=== PATIENT | male | born 1965 | race Caucasian/White ===

== ENCOUNTER 2018-07-26 18:01 | Inpatient (IN) | payer BC ==
--- OUTSIDE RECORDS SUMMARY | 2018-07-26 18:03 | XMS REPORT ---
:1965 [facility] [address] [place] [address] Dr. Mahmood. [address] [place] [address] Care Team Providers Name Role Phone DR HIEU OCAMPO Unavailable Unavailable Problems This patient has no known problems. Allergies, Adverse Reactions, Alerts This patient has no known allergies or adverse reactions. Medications This patient has no known medications. Encounters Start End Encounter Admission Attending Care Care Encounter Date/Time Date/Time Type Type Clinicians Facility Department ID 2017-12-13 Inpatient HIEU ONEIL Xi NGUYEN [id number] 14:00:00 2017-11-29 Inpatient HIEU ONEIL Xi NGUYEN [id number] 13:00:00
[2018-07-26 19:59] LABS: Absolute Monocytes 0.6 K/uL (0.1-1.3); Absolute Neutrophil 7.1 K/uL (1.8-8.0); Basophils % 1.3 % (0-1.3); Eosinophils % 1.4 % (0-4.4); Hematocrit 44.4 % (39.6-49.0); Lymphocytes % 11.4 % (15.3-44.8); MPV 7.3 fL (7.6-11.3); Monocytes % 7.2 % (3.3-12.3); RBC Red Blood Cell Count 4.84 M/uL (4.33-5.43)
[2018-07-26 20:03] LABS: Protime INR 1.04
[2018-07-26 20:28] LABS: ALT/SGPT 23 U/L (12-78); AST/SGOT 24 U/L (15-37); Albumin 3.9 g/dL (3.4-5.0); Alkaline Phosphatase 68 U/L (45-117); BUN Blood Urea Nitrogen 17 mg/dL (7-18); Bicarbonate 29 mmol/L (21-32); Bilirubin Direct 0.1 mg/dL (0-0.2); Bilirubin Total 0.4 mg/dL (0.2-1.0); Glucose Level 85 mg/dL (74-106); Potassium 4.2 mmol/L (3.5-5.1); Protein, Total 7.1 g/dL (6.4-8.2); Sodium Level 141 mmol/L (136-145)
[2018-07-26 20:29] LABS: Magnesium 2.3 mg/dL (1.8-2.4); NT PRO-BNP 18 pg/mL (<125); Troponin (Emerg Dept Use Only) < 0.02 ng/mL (0.0-0.045)
[2018-07-26 20:36] LABS: Blood Morphology Comment NOT SEEN (NOT SEEN); Platelet Estimate ADEQ; Urine White Blood Cell Casts OK
--- NOTE | 2018-07-26 20:51 | RAD REPORT ---
EXAM DESCRIPTION: RAD - Chest Single View - 07/26/2018 8:00 pm CLINICAL HISTORY: Chest pain, shortness of breath COMPARISON: January 2016 TECHNIQUE: AP portable chest image was obtained 1952 hours . FINDINGS: Patient has a very large 70% right-sided pneumothorax. Trachea is midline. There is near c omplete collapse of right-sided lobes. No pneumomediastinum seen. Left lung field is clear. Heart and vasculature are normal. No pleural fluid. 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 No acute aortic findings suspected. IMPRESSION: Approximately 70% right-sided pneumothorax. No tracheal shift or pneumomediastinum. No pleural fluid collection.
[2018-07-26] MEDS ORDERED: ONDANSETRON 4 MG/2 ML VIAL ONE (21:24)
[2018-07-26] MEDS ORDERED: PROPOFOL 200 MG/20 ML VIAL IV ONE (21:25)
[2018-07-26] MEDS ORDERED: NA CHLORIDE 0.9% 1,000 ML ONE (21:25)
--- NOTE | 2018-07-26 22:42 | RAD REPORT ---
EXAM DESCRIPTION: Amadout Single View07/26/2018 10:35 pm CLINICAL HISTORY: Right pneumothorax COMPARISON: July 26 FINDINGS: Right chest tube has been inserted with its tip overlying the right upper hemithorax. Right lung has re-expanded. Small right pneumothorax is present. No other change IMPRESSION: Placement of a right chest tube with small right pneumothorax
[2018-07-26] MEDS ORDERED: HYDROMORPHONE HCL 0.5 MG/0.5 ML INJ ONE (22:44)
[2018-07-26] MEDS ORDERED: HYDROMORPHONE HCL 1 MG/ML INJ ONE (23:08)
--- NOTE | 2018-07-26 23:22 | ER ---
Nurse's Notes [facility] Name: Owen Gaitan Age: 53 yrs Sex: Male : 1965 Arrival Date: 07/26/2018 Time: 18:02 Bed 4 Private MD: Shine Christine Diagnosis: Pneumothorax, unspecified Presentation: 07/26 18:08 Presenting complaint: Patient states: "I have a bit of a hiatal hernia. I swallowed ss bread and I felt pain, but it went away. Now I feel a pain again in my esophagus, but now it goes through my back. It hurts to breath and it hurts to swallow.". Transition of care: patient was not received from another setting of care. Onset of symptoms was July 26, 2018. Risk Assessment: Do you want to hurt yourself or someone else? Patient reports no desire to harm self or others. Initial Sepsis Screen: Does the patient meet any 2 criteria? No. Patient's initial sepsis screen is negative. Does the patient have a suspected source of infection? No. Patient's initial sepsis screen is negative. Care prior to arrival: None. 18:08 Method Of Arrival: Ambulatory ss 18:08 Acuity: JAIR 3 ss Triage Assessment: 19:12 General: Appears in no apparent distress. Behavior is calm, cooperative. Pain: ls4 Complains of pain in mid-sternal area Pain currently is 10 out of 10 on a pain scale. GI: Abdomen is flat, non-distended, Bowel sounds present X 4 quads. Abd is soft and non tender X 4 quads. Reports epigastric pain. Historical: - Allergies: 18:10 Iodine; ss 18:10 Morphine; ss 18:10 Shellfish Containing Products; ss - PMHx: 19:14 Arrhythmia- possibly afib; testicular CA; ls4 - PSHx: 18:10 spinal fusion; ss - Immunization history:: Adult Immunizations up to date. - Social history:: Smoking status: Patient uses tobacco products, chewing tobacco. - Ebola Screening: : Patient denies exposure to infectious person Patient denies travel to an Ebola-affected area in the 21 days before illness onset. Screenin:15 Abuse screen: Denies threats or abuse. Denies injuries from another. Nutritional ls4 screening: No deficits noted. Tuberculosis screening: No symptoms or risk factors identified. Fall Risk None identified. Assessment: 19:48 General: Appears in no apparent distress. Behavior is calm, cooperative. Neuro: No ls4 deficits noted. Cardiovascular: Reports chest pain, Heart tones S1 S2 Capillary refill < 3 seconds Patient's skin is warm and dry. Respiratory: Respiratory effort is even, unlabored, Respiratory pattern is regular, Breath sounds are clear in left posterior upper lobe and left posterior lower lobe Breath sounds are diminished in right posterior upper lobe, right posterior middle lobe and right posterior lower lobe. Derm: Skin is pink, warm \\T\\ dry. 20:00 Reassessment: Patient and/or family updated on plan of care and expected duration. Pain ls4 level reassessed. Patient is alert, oriented x 3, equal unlabored respirations, skin warm/dry/pink. 21:00 Reassessment: Patient appears in no apparent distress at this time. Patient and/or cc3 family updated on plan of care and expected duration. Pain level reassessed. Patient is alert, oriented x 3, equal unlabored respirations, skin warm/dry/pink. Received this male patient from MONIQUE Merritt as a case of pneumothorax for chest tube insertion. With IV cannula gauge 20 at the left ACV saline locked. 21:05 Reassessment: Patient consented for conscious sedation and chest tube insertion signed cc3 by the patient himself. 21:59 Reassessment: Patient appears in no apparent distress at this time. Patient and/or cc3 family updated on plan of care and expected duration. Pain level reassessed. Patient is alert, oriented x 3, equal unlabored respirations, skin warm/dry/pink. Dr. Hamilton at bedside to do right chest tube insertion, monitored the patient closely. 22:15 Reassessment: Patient appears in no apparent distress at this time. Patient and/or cc3 family updated on plan of care and expected duration. Pain level reassessed. Dr. Hamilton inserted chest tube Fr. 22 at the right lateral chest wall aseptically connected to water seal chamber. Monitored the patient closely pre, intra, and post procedure. See documentation of conscious sedation flowsheet. Dressing done, patient tolerated the procedure well. 22:25 Reassessment: Patient appears in no apparent distress at this time. Patient and/or cc3 family updated on plan of care and expected duration. Pain level reassessed. Patient is alert, oriented x 3, equal unlabored respirations, skin warm/dry/pink. 23:21 Reassessment: Patient appears in no apparent distress at this time. Patient and/or cc3 family updated on plan of care and expected duration. Pain level reassessed. Patient is alert, oriented x 3, equal unlabored respirations, skin warm/dry/pink. Patient for admission, awaiting admission orders. Patient states feeling better. Patient states symptoms have improved. 07/27 00:00 Reassessment: Patient appears in no apparent distress at this time. Patient and/or cc3 family updated on plan of care and expected duration. Pain level reassessed. Patient is alert, oriented x 3, equal unlabored respirations, skin warm/dry/pink. Dr. Smith at bedside, assessing the patient. 01:05 Reassessment: Patient appears in no apparent distress at this time. Patient and/or cc3 family updated on plan of care and expected duration. Pain level reassessed. Patient is alert, oriented x 3, equal unlabored respirations, skin warm/dry/pink. Room available to 221, report called and handed over to MONIQUE Cox for continuity of care and management. 01:25 Reassessment: Patient appears in no apparent distress at this time. Patient and/or cc3 family updated on plan of care and expected duration. Pain level reassessed. Patient is alert, oriented x 3, equal unlabored respirations, skin warm/dry/pink. Patient left ER for admission vitally stable by stretcher on oxygen therapy by nasal cannula at 2LPM, on chest tube connected to water seal escorted by [facility] and the patient's . Patient denies pain at this time. Patient states feeling better. Vital Signs: 07/26 18:08 BP 125 / 81; Pulse 83; Resp 16; Temp 98.1(TE); Pulse Ox 98% on R/A; Weight 61.23 kg; ss Height 5 ft. 7 in. (170.18 cm); Pain 10/10; 19:10 BP 132 / 79; Pulse 74; Resp 21; Pulse Ox 99% on R/A; Pain 8/10; ls4 20:25 BP 126 / 81; Pulse 70; Resp 16; Pulse Ox 99% on R/A; Pain 8/10; ls4 21:00 BP 159 / 89; Pulse 59; Resp 24 S; Temp 98(O); Pulse Ox 100% on 15% Non-rebreather mask; cc3 21:24 Weight 63.5 kg (M); cc3 21:59 BP 149 / 100; Pulse 64; Resp 20 S; Pulse Ox 100% on 15% Non-rebreather mask; cc3 22:07 BP 124 / 76; Pulse 67; Resp 20 S; Pulse Ox 100% on 15% Non-rebreather mask; cc3 22:10 BP 117 / 78; Pulse 80; Resp 20 S; Pulse Ox 100% on 15% Non-rebreather mask; cc3 22:15 BP 118 / 77; Pulse 75; Resp 20 S; Pulse Ox 100% on 15% Non-rebreather mask; cc3 22:17 BP 118 / 81; Pulse 73; Resp 20 S; Pulse Ox 100% on 15% Non-rebreather mask; cc3 22:20 BP 132 / 79; Pulse 71; Resp 20 S; Pulse Ox 100% on 15% Non-rebreather mask; cc3 22:25 BP 136 / 82; Pulse 61; Resp 20 S; Pulse Ox 100% on 15% Non-rebreather mask; cc3 22:30 BP 137 / 100; Pulse 64; Resp 20 S; Pulse Ox 98% on 15% Non-rebreather mask; cc3 22:45 BP 139 / 85; Pulse 72; Resp 20 S; Pulse Ox 100% on 15% Non-rebreather mask; cc3 23:00 BP 134 / 85; Pulse 66; Resp 13; Pulse Ox 100% on 15% Non-rebreather mask; cc3 23:15 BP 131 / 96; Pulse 65; Resp 19 S; Pulse Ox 100% on 15% Non-rebreather mask; cc3 23:30 BP 122 / 84; Pulse 63; Resp 13 S; Pulse Ox 100% on 15% Non-rebreather mask; cc3 23:45 BP 115 / 81; Pulse 66; Resp 13 S; Pulse Ox 100% on 15% Non-rebreather mask; 3 07/27 00:00 BP 123 / 85; Pulse 67; Resp 14 S; Pulse Ox 100% on 15% Non-rebreather mask; cc3 00:15 BP 122 / 80; Pulse 65; Resp 20 S; Pulse Ox 100% on 15% Non-rebreather mask; cc3 01:00 BP 117 / 79; Pulse 67; Resp 13 S; Pulse Ox 100% on 2 lpm NC; cc3 07/26 21:24 Body Mass Index 21.93 (63.50 kg, 170.18 cm) cc3 ED Course: 07/26 18:02 Patient arrived in ED. as 18:03 Shine Christine DO is Private Physician. as 18:08 Arm band placed on right wrist. ss 18:09 Triage completed. ss 18:51 Shaina Johnson, MONIQUE is Primary Nurse. ls4 19:15 Patient has correct armband on for positive identification. Bed in low position. Call ls4 light in reach. Side rails up X 1. 19:21 Alonzo Hamilton MD is Attending Physician. tw4 19:47 NT PRO-BNP Sent. ls4 19:48 XRAY Chest (1 view) Sent. ls4 19:49 No provider procedures requiring assistance completed. Inserted saline lock: 20 gauge ls4 in left antecubital area, using aseptic technique. Blood collected. 19:51 XRAY Chest (1 view) In Process Unspecified. EDMS 21:59 Assist provider with chest tube insertion with 22 Fr. in right lateral chest wall. Tray cc3 was set up. Chest tube inserted by Alonzo Hamilton MD Placement verified by CXR, return of air, Dressed with 4X4s, xeroform Patient tolerated well. 22:22 Óscar Leyva PA is PHCP. jmm 22:35 Chest Single View XRAY In Process Unspecified. EDMS 23:00 CXR XRAY In Process Unspecified. EDMS 23:17 Eder Smith MD is Hospitalizing Provider. tw4 07/27 01:05 Patient admitted, IV remains in place. cc3 Administered Medications: 07/26 21:10 Drug: NS 0.9% 1000 ml Route: IV; Rate: 1 bolus; Site: left antecubital; cc3 22:15 Follow up: Response: No adverse reaction; IV Status: Completed infusion; IV Intake: cc3 1000ml 21:10 Drug: Zofran 4 mg Route: IVP; Site: left antecubital; cc3 21:30 Follow up: Response: No adverse reaction; Nausea is decreased cc3 21:59 Drug: Propofol 180 mg {Note: see documentation on conscious sedation flowsheet.} Route: cc3 IVP; Site: left antecubital; 22:10 Follow up: Response: No adverse reaction cc3 22:34 Drug: Dilaudid 0.5 mg Route: IVP; Site: left antecubital; cc3 22:40 Follow up: Response: No adverse reaction; Pain is unchanged, physician notified cc3 22:55 Drug: Dilaudid 1 mg Route: IVP; Site: left antecubital; bb 23:00 Follow up: Response: No adverse reaction; Pain is decreased cc3 Intake: 22:15 IV: 1000ml; Total: 1000ml. cc3 Outcome: 23:21 Decision to Hospitalize by Provider. tw4 07/27 01:05 Admitted to Med/surg accompanied by tech, family with patient, via stretcher, room 221, cc3 with oxygen, with chart, Report called to MONIQUE Cox Condition: stable Instructed on the need for admit, Demonstrated understanding of instructions. 01:27 Patient left the ED. cc3 Signatures: Dispatcher [employer] EDMS Óscar Leyva PA PA jmm Martinez, Amelia as Ballard, Brenda, MONIQUE RN Domi Duran RN RN ss Alonzo Hamilton MD MD tw4 Bailee Smiley 3 Shaina Johnson, MONIQUE RN ls4 Corrections: (The following items were deleted from the chart) 07/26 20:54 19:48 Respiratory: Respiratory effort is even, unlabored, Respiratory pattern is ls4 regular, ls4 21:20 21:00 BP 159 / 89; Pulse 59bpm; Resp 24bpm; Pulse Ox 100% 02 10% Non-rebreather mask; cc3 cc3 23:04 21:00 BP 159 / 89; Pulse 59bpm; Resp 24bpm; Pulse Ox 100% 02 15% Non-rebreather mask; cc3 Temp 98F Oral; cc3 23:04 21:59 BP 149 / 100; Pulse 64bpm; Resp 20bpm; Pulse Ox 100% 02 15% Non-rebreather mask; cc3 cc3 23:04 22:07 BP 124 / 76; Pulse 67bpm; Resp 20bpm; Pulse Ox 100% 02 15% Non-rebreather mask; cc3 cc3 23:29 21:00 Reassessment: Patient appears in no apparent distress at this time. Patient cc3 and/or family updated on plan of care and expected duration. Pain level reassessed. Patient is alert, oriented x 3, equal unlabored respirations, skin warm/dry/pink. Received this male patient from MONIQUE Merritt as a case of shortness of breath and pain on inspiration. With IV cannula gauge 20 at the left ACV saline locked. cc3 23:52 22:20 BP 132 / 79; Pulse 71bpm; Resp 20bpm; Spontaneous; Pulse Ox 100% RA; cc3 cc3 07/27 03:04 05 22:15 Reassessment: Patient appears in no apparent distress at this time. Patient cc3 and/or family updated on plan of care and expected duration. Pain level reassessed. Dr. Hamilton inserted chest tube Fr. 22 at the right lateral chest wall aseptically. Monitored the patient closely pre, intra, and post procedure. See documentation of conscious sedation flowsheet. Dressing done, patient tolerated the procedure well. cc3
--- NOTE | 2018-07-26 23:22 | EDPHYS ---
Physician Documentation [facility] Name: Owen Gaitan Age: 53 yrs Sex: Male : 1965 Arrival Date: 07/26/2018 Time: 18:02 Bed 4 Private MD: Shine Christine ED Physician Alonzo Hamilton HPI: 07/27 07:05 This 53 yrs old Male presents to ER via Ambulatory with complaints of tw4 Epigastric Pain, Shortness Of Breath, Back Pain. 07:05 The patient has shortness of breath at rest. Duration: The symptoms are continuous, and tw4 are unchanged since they started. The patient's shortness of breath has no apparent modifying factors. Associated signs and symptoms: The patient has no apparent associated signs or symptoms. Severity of symptoms: At their worst the symptoms were moderate in the emergency department the symptoms are unchanged. The patient has not experienced similar symptoms in the past. Historical: - Allergies: 07/26 18:10 Iodine; ss 18:10 Morphine; ss 18:10 Shellfish Containing Products; ss - PMHx: 19:14 Arrhythmia- possibly afib; testicular CA; ls4 - PSHx: 18:10 spinal fusion; ss - Immunization history:: Adult Immunizations up to date. - Social history:: Smoking status: Patient uses tobacco products, chewing tobacco. - Ebola Screening: : Patient denies exposure to infectious person Patient denies travel to an Ebola-affected area in the 21 days before illness onset. ROS: 07/27 07:05 Constitutional: Negative for fever, chills, and weight loss, Eyes: Negative for injury, tw4 pain, redness, and discharge, Cardiovascular: Negative for chest pain, palpitations, and edema, Respiratory: Negative for shortness of breath, cough, wheezing, and pleuritic chest pain, Abdomen/GI: Negative for abdominal pain, nausea, vomiting, diarrhea, and constipation, Back: Negative for injury and pain, Skin: Negative for injury, rash, and discoloration, Neuro: Negative for headache, weakness, numbness, tingling, and seizure. Exam: 07:05 Constitutional: This is a well developed, well nourished patient who is awake, alert, tw4 and in no acute distress. Head/Face: Normocephalic, atraumatic. 07:05 ENT: Nares patent. No nasal discharge, no septal abnormalities noted. Tympanic tw4 membranes are normal and external auditory canals are clear. Oropharynx with no redness, swelling, or masses, exudates, or evidence of obstruction, uvula midline. Mucous membranes moist. Chest/axilla: Normal chest wall appearance and motion. Nontender with no deformity. No lesions are appreciated. Cardiovascular: Regular rate and rhythm with a normal S1 and S2. No gallops, murmurs, or rubs. Normal PMI, no JVD. No pulse deficits. 07:05 Abdomen/GI: Soft, non-tender, with normal bowel sounds. No distension or tympany. No guarding or rebound. No evidence of tenderness throughout. Back: No spinal tenderness. No costovertebral tenderness. Full range of motion. 07:05 Respiratory: the patient does not display signs of respiratory distress, Respirations: accessory muscle usage, Breath sounds: decreased breath sounds, that are moderate, are heard in the right posterior middle lobe and right posterior lower lobe. Vital Signs: 07/26 18:08 BP 125 / 81; Pulse 83; Resp 16; Temp 98.1(TE); Pulse Ox 98% on R/A; Weight 61.23 kg; ss Height 5 ft. 7 in. (170.18 cm); Pain 10/10; 19:10 BP 132 / 79; Pulse 74; Resp 21; Pulse Ox 99% on R/A; Pain 8/10; ls4 20:25 BP 126 / 81; Pulse 70; Resp 16; Pulse Ox 99% on R/A; Pain 8/10; ls4 21:00 BP 159 / 89; Pulse 59; Resp 24 S; Temp 98(O); Pulse Ox 100% on 15% Non-rebreather mask; cc3 21:24 Weight 63.5 kg (M); cc3 21:59 BP 149 / 100; Pulse 64; Resp 20 S; Pulse Ox 100% on 15% Non-rebreather mask; cc3 22:07 BP 124 / 76; Pulse 67; Resp 20 S; Pulse Ox 100% on 15% Non-rebreather mask; cc3 22:10 BP 117 / 78; Pulse 80; Resp 20 S; Pulse Ox 100% on 15% Non-rebreather mask; cc3 22:15 BP 118 / 77; Pulse 75; Resp 20 S; Pulse Ox 100% on 15% Non-rebreather mask; cc3 22:17 BP 118 / 81; Pulse 73; Resp 20 S; Pulse Ox 100% on 15% Non-rebreather mask; cc3 22:20 BP 132 / 79; Pulse 71; Resp 20 S; Pulse Ox 100% on 15% Non-rebreather mask; cc3 22:25 BP 136 / 82; Pulse 61; Resp 20 S; Pulse Ox 100% on 15% Non-rebreather mask; cc3 22:30 BP 137 / 100; Pulse 64; Resp 20 S; Pulse Ox 98% on 15% Non-rebreather mask; cc3 22:45 BP 139 / 85; Pulse 72; Resp 20 S; Pulse Ox 100% on 15% Non-rebreather mask; cc3 23:00 BP 134 / 85; Pulse 66; Resp 13; Pulse Ox 100% on 15% Non-rebreather mask; cc3 23:15 BP 131 / 96; Pulse 65; Resp 19 S; Pulse Ox 100% on 15% Non-rebreather mask; cc3 23:30 BP 122 / 84; Pulse 63; Resp 13 S; Pulse Ox 100% on 15% Non-rebreather mask; cc3 23:45 BP 115 / 81; Pulse 66; Resp 13 S; Pulse Ox 100% on 15% Non-rebreather mask; cc3 07/27 00:00 BP 123 / 85; Pulse 67; Resp 14 S; Pulse Ox 100% on 15% Non-rebreather mask; cc3 00:15 BP 122 / 80; Pulse 65; Resp 20 S; Pulse Ox 100% on 15% Non-rebreather mask; cc3 01:00 BP 117 / 79; Pulse 67; Resp 13 S; Pulse Ox 100% on 2 lpm NC; cc3 07/26 21:24 Body Mass Index 21.93 (63.50 kg, 170.18 cm) cc3 Procedures: 07:34 Chest tube insertion: the site was prepped using Betadine, Tube size: a 22 tamazight chest tw4 tube was inserted, introduced in right lateral in the right lateral anterior chest, to wall suction, dressed with vaseline gauze, foam tape, 4x4s, the patient tolerated the procedure well. MDM: 07/26 19:21 Patient medically screened. tw4 07/26 19:24 Order name: Basic Metabolic Panel [facility] 07/26 19:24 Order name: CBC with Diff [facility] 07/26 19:24 Order name: LFT's [facility] 07/26 19:24 Order name: Magnesium [facility] 07/26 19:24 Order name: NT PRO-BNP [facility] 07/26 19:24 Order name: PT-INR [facility] 07/26 19:24 Order name: Troponin (emerg Dept Use Only) [facility] 07/26 19:24 Order name: XRAY Chest (1 view) [facility] 07/26 20:05 Order name: CBC Smear Scan [facility] 07/26 22:23 Order name: Chest Single View XRAY [facility] 07/26 22:54 Order name: CXR XRAY [facility] 07/26 18:10 Order name: EKG; Complete Time: 18:11 ss 07/26 18:10 Order name: EKG - Nurse/Tech; Complete Time: 18:18 ss 07/26 19:24 Order name: Cardiac monitoring; Complete Time: 19:47 [facility] 07/26 19:24 Order name: IV Saline Lock; Complete Time: 19:48 [facility] 07/26 19:24 Order name: Labs collected and sent; Complete Time: 19:48 [facility] 07/26 19:24 Order name: O2 Per Protocol; Complete Time: 19:48 [facility] 07/26 19:24 Order name: O2 Sat Monitoring; Complete Time: 19:48 Administered Medications: 21:10 Drug: NS 0.9% 1000 ml Route: IV; Rate: 1 bolus; Site: left antecubital; cc3 22:15 Follow up: Response: No adverse reaction; IV Status: Completed infusion; IV Intake: cc3 1000ml 21:10 Drug: Zofran 4 mg Route: IVP; Site: left antecubital; cc3 21:30 Follow up: Response: No adverse reaction; Nausea is decreased cc3 21:59 Drug: Propofol 180 mg {Note: see documentation on conscious sedation flowsheet.} Route: cc3 IVP; Site: left antecubital; 22:10 Follow up: Response: No adverse reaction cc3 22:34 Drug: Dilaudid 0.5 mg Route: IVP; Site: left antecubital; cc3 22:40 Follow up: Response: No adverse reaction; Pain is unchanged, physician notified cc3 22:55 Drug: Dilaudid 1 mg Route: IVP; Site: left antecubital; bb 23:00 Follow up: Response: No adverse reaction; Pain is decreased cc3 Disposition: 07/26/18 23:21 Hospitalization ordered by Eder Smith for Inpatient Admission. Preliminary diagnosis is Pneumothorax, unspecified. - Bed requested for Telemetry/MedSurg (Inpatient). - Status is Inpatient Admission. cc3 - Condition is Stable. - Problem is new. - Symptoms have improved. UTI on Admission? No Signatures: Dispatcher [employer] EDMS Ivania Mustafa RN RN bb Domi Toth, RN RN ss Jami Venegas RN RN Alonzo Hamilton MD MD tw4 Bailee Smiley [facility] Shaina Johnson RN RN ls4 Corrections: (The following items were deleted from the chart) 07/27 00:46 07/26 23:21 Hospitalization Ordered by Eder Smith MD for Inpatient Admission. cg Preliminary diagnosis is Pneumothorax, unspecified. Bed requested for Telemetry/MedSurg (Inpatient). Status is Inpatient Admission. Condition is Stable. Problem is new. Symptoms have improved. UTI on Admission? No. tw4 07/27 01:27 00:46 07/26/2018 23:21 Hospitalization Ordered by Eder Smith MD for Inpatient cc3 Admission. Preliminary diagnosis is Pneumothorax, unspecified. Bed requested for Telemetry/MedSurg (Inpatient). Status is Inpatient Admission. Condition is Stable. Problem is new. Symptoms have improved. UTI on Admission? No.
--- NOTE | 2018-07-27 00:26 | P.HP ---
Certification for Inpatient Patient admitted to: Inpatient With expected LOS: >2 Midnights Practitioner: I am a practitioner with admitting privileges, knowledge of patient current condition, hospital course, and medical plan of care. Services: Services provided to patient in accordance with Admission requirements found in Title 42 Section 412.3 of the Code of Federal Regulations Patient History Date of Service: 07/27/18 Reason for admission: spontaneous pneumothorax History of Present Illness: Mr Gaitan is a 53 years old male with history of testicular cancer, paroxysmal atrial fibrillation (not anticoagulated), cervical herniated discus, start this afternoon with right flank pain. He was slightly SOB as well. Then, the patient was brought to ED for evaluation. CXR was remarkable for right side pneumothorax. Dr Hamilton then placed a chest tube. New CXR shows successful expansion of the right lung. The patient has remote history of smoking in his teenager, currently he chew tobacco. Lab work mostly unremarkable. Allergies iodine Allergy (Verified 02/15/15 17:29) Anaphylaxis morphine Allergy (Verified 01/25/16 04:23) seizure activity Home medications list reviewed: Yes Home Medications: Acetaminophen/Caff/Dihydrocod [Jqrfxmzc-Voql-Nwdwuksdke 320.5] 1 tab PO DAILY Fludrocortisone [Florinef *] 1 tab PO DAILY 01/25/16 - Past Medical/Surgical History Diabetic: No -: Arrythmia-possible AFIB -: C2 FX -: testicular cancer -: Testicular Cancer -: Removal of one testicle -: Spinal Fusion - Family History Father -: Diabetes Mother -: Heart disease, Cancer Notes: breast cancer Brother -: Diabetes Sister -: Cancer - Social History Smoking Status: Former smoker (teenager age) Alcohol use: No CD- Drugs: No Caffeine use: Yes Place of Residence: Home Review of Systems 10-point ROS is otherwise unremarkable Physical Examination - Physical Exam General: Alert, In no apparent distress HEENT: Atraumatic, PERRLA, Mucous membr. moist/pink, EOMI, Sclerae nonicteric Neck: Supple, 2+ carotid pulse no bruit, No LAD, Without JVD or thyroid abnormality Respiratory: Normal air movement, Crackles/rales (right side) Cardiovascular: Regular rate/rhythm, Normal S1 S2 Gastrointestinal: Normal bowel sounds, No tenderness Musculoskeletal: No tenderness Integumentary: No rashes Neurological: Normal speech, Normal strength at 5/5 x4 extr, Normal tone, Normal affect Lymphatics: No axilla or inguinal lymphadenopathy - Studies Laboratory Data (last 24 hrs) 07/26/18 19:39: PT 12.3, INR 1.04 07/26/18 19:39: WBC 9.0, Hgb 14.8, Hct 44.4, Plt Count 239 07/26/18 19:39: Sodium 141, Potassium 4.2, BUN 17, Creatinine 0.84, Glucose 85, Magnesium 2.3, Total Bilirubin 0.4, AST 24, ALT 23, Alkaline Phosphatase 68 Assessment and Plan - Problems (Diagnosis) (1) Spontaneous pneumothorax Current Visit: Yes Status: Acute (2) History of testicular cancer Current Visit: Yes Status: Acute (3) Herniated disc, cervical Current Visit: Yes Status: Acute - Plan Will admit the patient to the hospital due to spontaneous pneumothorax. He is hemodynamically stable. Will consult Dr Travis for chest tube management. - Advance Directives Does patient have a Living Will: No Does patient have a Durable POA for Healthcare: No - Code Status/Comfort Care Code Status Assessed: Yes Code Status: Full Code
[2018-07-27] MEDS ORDERED: ONDANSETRON 4 MG/2 ML VIAL IV PRN (01:15)
[2018-07-27] MEDS: KETOROLAC 30 MG/ML INJ IV PRN ×3 (01:51→19:12)
[2018-07-27] MEDS ORDERED: CODEINE 30MG/APAP 300MG TAB PO PRN (06:37)
[2018-07-27 07:57] VITALS: BMI 21.9
--- NOTE | 2018-07-27 09:01 | RAD REPORT ---
EXAM DESCRIPTION: Laura Single View07/26/2018 11:00 pm CLINICAL HISTORY: Chest pain COMPARISON: July 26 FINDINGS: Right chest tube remains in place. Small right pneumothorax is present. Areas of right ate lectasis. Left lung appears clear of acute infiltrate
[2018-07-27] MEDS ORDERED: CEFAZOLIN/NS 1gm 1 GM/50 ML BAG IVPB SCH (09:14)
--- NOTE | 2018-07-27 10:26 | RAD REPORT ---
EXAM DESCRIPTION: CT - Thorax Wo Con - 07/27/2018 10:03 am CLINICAL HISTORY: sob COMPARISON: July 26 TECHNIQUE: Computed axial tomography of the chest was obtained. Contrast was not requested. All CT scans are performed using dose optimization technique as appropriate and may include automated exposure control or mA/KV adjustment according to patient size. FINDINGS: The evaluation of mediastinum, naima and vessels is limited secondary to lack of IV contras t administration. A right chest tube has its tip in the upper right hemithorax. Small right apical pneumothorax. Tiny right basilar pneumothorax No mediastinal or hilar lymphadenopathy is seen. Mild right lower lobe atelectasis. Bullous/blebs not noted. Tiny right pleural effusion IMPRESSION: Small right pneumothorax with chest tube in place
[2018-07-27] MEDS: CEFAZOLIN/SWI 1gm 1 GM/10 ML SYR IV SCH ×2 (10:35→17:16)
--- NOTE | 2018-07-27 14:27 | EKG ---
Test Date: 2018-07-26 Test Time: 18:16:32 Procurement Representative: LEANNE MEASUREMENT RESULTS: Intervals: Rate: 74 RI: 140 QRSD: 90 QT: 372 QTc: [address]: P: 95 RI: 140 QRS: 76 T: 88 INTERPRETIVE STATEMENTS: Normal sinus rhythm Anteroseptal infarct, age undetermined Abnormal ECG Compared to ECG 01/25/2016 01:46:00 No significant changes Electronically Signed On 07-27-18 14:26:22 CDT by Arsh Sandoval
[2018-07-27] MEDS: HYDROCODONE/APAP 5/325 MG TAB PO PRN (14:45)
--- NOTE | 2018-07-27 14:59 | PN ---
Date of Progress Note: 07/27/2018 Subjective: Patient seen and examined. Chart reviewed and case discussed with RN and Dr. Travis. Th e patient still having some pain in his chest, mostly pleuritic with deep breaths. Medications: List reviewed. Physical Examination: Vital Signs: Temperature 97.5, heart rate 62, blood pressure 120/74, respirations 18, O2 is 99% on 2 liters via nasal cannula. General: Awake, alert, oriented x3. Some mild distress, ill-appearing male. CV: S1, S2. Regular rate and rhythm. Peripheral pulses present. Respiratory: Diminished breath sounds on the right. No wheezing or stridor. Gastrointestinal: Abdomen is soft, nontender, nondistended. Positive bowel sounds. Extremities: No clubbing, cyanosis, or edema. Neurologic: Nonfocal. Laboratory Data: Labs pending. CT scan of the chest is pending. Assessment And Plan: 1.Spontaneous pneumothorax. X-ray still shows residual pneumothorax after chest tube placement. Dr Zurdo Travis has ordered a CT scan of the chest to rule out any blebs. May need Pulmonology evaluation. Chest tube currently at [facility]. 2.History of testicular cancer. 3.Herniated cervical disk. 4.History of arrhythmia, not on any anticoagulation. 5.Deep vein thrombosis prophylaxis, SCDs. Plan: We will resume home medications as appropriate. Continue pain control. Appreciate Dr. Travis' s input regarding chest tube management. /INGRID Voice ID: [id number] Report ID: [id number]
--- NOTE | 2018-07-27 16:08 | CON ---
Reason: Spontaneous pneumothorax. History Of Present Illness: The patient is a 53-year-old gentleman, who presented with acute onset o f shortness of breath, following cough and right flank pain. He came to the emergency room, had a est x-ray done, which showed a large right pneumothorax. A chest tube was placed. The patient was a dmitted and I was consulted. He is awake and alert. He is not on any oxygen at this time. Chest tu be is to water-seal. The patient does not currently smoke. He did smoke for years as a teenager, cu rrently chews tobacco. Has no further chest pain. There is some pain with inspiration because of th e chest tube. No other discomfort. Review of Systems: Otherwise, unremarkable. Past Medical History: Significant for paroxysmal atrial fibrillation, testicular cancer, and cervica l herniated disk. Past Surgical History: Spinal fusion, orchiectomy. Allergies: IODINE, MORPHINE. Social History: The patient currently does not smoke, does not drink. Family History: Significant for diabetes and breast cancer in the sister. Physical Examination: Vital Signs: Stable. He is afebrile. He is awake, alert, and oriented x3. Head and Neck: Cranial nerves 2 through 12 are grossly within normal limits. No neck masses. No JV D. Throat clear. Neck is supple. No tracheal deviation. Chest: Clear on both sides. Heart: S1 and S2. Abdomen: Soft. Extremities: Neurovascularly intact. Neuro: Nonfocal. Laboratory Data: White count is 9 and slight left shift. INR is 1.04. Chemistry reviewed with all within normal limits. Initial chest x-ray showed a 70% pneumothorax after the chest tube was placed. It showed a small right pneumothorax present, and areas of right atelectasis. Assessment: Spontaneous right pneumothorax. Recommendations: We will put the pleural back to suction as patient has a residual pneumothorax. We will order a CT of the chest. Put the patient on oxygen. We will get another chest x-ray tomorrow and should the lung to be fully expanded then we will take it off and put it on water-seal. We will get a Pulmonary consult to see if the patient needs pleurodesis and we will follow up with the result s of the CT chest. Once the patient is clinically stable, no longer requires the chest tube, we will remove it. Plan of care discussed in detail with Dr. Stack. /MODL Voice ID: [id number] Report ID: [id number]
[2018-07-28] MEDS: CEFAZOLIN/SWI 1gm 1 GM/10 ML SYR IV SCH ×3 (00:14→18:06)
[2018-07-28] MEDS: HYDROCODONE/APAP 5/325 MG TAB PO PRN ×4 (01:24→21:40)
[2018-07-28] MEDS: KETOROLAC 30 MG/ML INJ IV PRN ×2 (05:00→18:15)
[2018-07-28 05:02] LABS: Absolute Lymphocytes (CBC) 1.5 K/uL (0.7-4.9); Absolute Monocytes 0.7 K/uL (0.1-1.3); Basophils % 0.8 % (0-1.3); Eosinophils % 5.3 % (0-4.4); Hematocrit 42.1 % (39.6-49.0); Lymphocytes % 27.4 % (15.3-44.8); MPV 7.5 fL (7.6-11.3); Monocytes % 13.3 % (3.3-12.3); RBC Red Blood Cell Count 4.61 M/uL (4.33-5.43)
[2018-07-28 05:29] LABS: BUN Blood Urea Nitrogen 14 mg/dL (7-18); Bicarbonate 30 mmol/L (21-32); Glucose Level 88 mg/dL (74-106); Potassium 4.2 mmol/L (3.5-5.1); Sodium Level 142 mmol/L (136-145)
[2018-07-28] MEDS: DULOXETINE 30 MG CAP PO SCH (08:48)
--- NOTE | 2018-07-28 11:15 | P.CNS ---
Date of Consult: 07/28/18 Chief Complaint: spontaneous pneumothorax History of Present Illness: Patient is 53 years of age no prior significant past medical history well of sudden onset of right-sided pneumothorax 90% collapse of his lung . Patient is status post chest tube doing well has some chest discomfort no prior history of pneumothorax in no air leaks Allergies iodine Allergy (Verified 02/15/15 17:29) Anaphylaxis morphine Allergy (Verified 01/25/16 04:23) seizure activity Home Medications: Acetaminophen with Codeine [Acetaminophen-Cod #3 Tablet] 1 tab PO Q12H PRN 07/27 Duloxetine [Cymbalta *] 60 mg PO DAILY 07/27/18 - Past Medical/Surgical History Diabetic: No -: Arrythmia-possible AFIB -: C2 FX -: testicular cancer -: Testicular Cancer -: Removal of one testicle -: Spinal Fusion -: hernia surgery - Family History Father Medical History: Diabetes Mother Medical History: Heart disease, Cancer Notes: breast cancer Brother Medical History: Diabetes Sister Medical History: Cancer - Social History Smoking Status: Never smoker Alcohol use: Yes CD- Drugs: No Caffeine use: Yes Place of Residence: Home Review of Systems 10-point ROS is otherwise unremarkable Physical Examination Temp Pulse Resp BP Pulse Ox 98 F 65 18 135/80 98 07/28/18 08:00 07/28/18 08:00 07/28/18 08:00 07/28/18 08:00 07/28/18 08:00 General: Alert, Oriented x3 Neck: No Thyromegaly Cardiovascular: No edema, Regular rate/rhythm Gastrointestinal: Normal bowel sounds, Soft and benign - Problems (1) Spontaneous pneumothorax Current Visit: Yes Status: Acute Plan: Patient is 53 years of age admitted with primary spontaneous significant pneumothorax that required a chest tube he is doing much better lung is expanded no air leaks labs are unremarkable. Discuss with cardiothoracic surgery as this is his 1st incidence of primary spontaneous pneumothorax radical intervention of pleurodesis at this time is not recommend it patient to be kept on a chest tube suction for 48 hr and then water-seal times 24 hr hinges no ear leak in the lung remains expanded will plan to remove the chest tube his chest tube was inserted around 10:00 p.m. on life 17 he will be 48 hr today at 7:[address] the patient on water seal at 7:00 p.m. for 24 hr
--- NOTE | 2018-07-28 12:07 | RAD REPORT ---
EXAM DESCRIPTION: RAD - Chest Pa And Lat (2 Views) - 07/28/2018 9:23 am CLINICAL HISTORY: chest tube/pneumothorax Chest pain. COMPARISON: Chest Single View dated 07/26/2018; Chest Single View dated 07/26/2018; Chest Single View dated 07/26/2018; Chest Single View dated 01/25/2016; Thoracic Spine Wo Contr dated 07/24/2018 FINDINGS: Right-sided chest tube remains in place. Small apical residual pneumothorax on the right i s unchanged. The lungs are emphysematous. The heart is normal in size.
--- NOTE | 2018-07-28 14:05 | PN ---
Date of Progress Note: 07/28/2018 Subjective: The patient is awake and alert, no complaints. Objective: Vital signs: Stable and afebrile. Chest tube with minimal output, no air leak. Chest x-ray pending. Chest is clear. Assessment: Status post right chest tube for spontaneous pneumothorax. Recommendation: We will await the results of the chest x-ray. Should there be no further pneumonia then he could be taken off suction. Also await Dr. Richards's recommendation to see whether the patie nt needs pleurodesis. Hopefully, we can get the chest tube out tomorrow. /MODL Voice ID: [id number] Report ID: [id number]
--- NOTE | 2018-07-28 15:15 | PN ---
Date of Progress Note: 07/28/2018 Subjective: The patient is seen and examined. Chart reviewed and case discussed with RN and Dr. Rhett hernandez. The patient states he feels better. Still having some pleuritic pain on the right side. Medications: List reviewed. Physical Examination: Vital Signs: Temperature 98, heart rate 65, blood pressure 135/80, respirations 18, O2 98% on room a ir. General: Awake, alert, and oriented x3. Some mild distress due to pain. CV: S1, S2. Regular rate and rhythm. Peripheral pulses present. Respiratory: Diminished breath sounds on the right improved. Gastrointestinal: Abdomen is soft, nontender, nondistended. Positive bowel sounds. Extremities: No clubbing, cyanosis, or edema. Neurologic: Nonfocal. Laboratory Data: Sodium 142, potassium 4.2, chloride 109, CO2 30, BUN 14, creatinine 0.82, glucose 8 8, calcium 8.1. WBC 5.6, H and H 14.2 and 42.1, platelets 218, neutrophils 53%. Assessment And Plan: A 53-year-old male with, 1.Spontaneous pneumothorax, currently status post chest tube placement. CT scan of the chest done y esterday showed small right pneumothorax with chest tube in place. No blebs. The patient is being s een by Dr. Travis. Chest tubes currently at to wall suction. Pulmonology was consulted yesterday for possible pleurodesis. We will continue pain control. Repeat chest x-ray today. 2.History of testicular cancer. 3.Herniated cervical disk. Continue with pain control. 4.History of arrhythmia, stable. 5.Deep venous thrombosis prophylaxis with SCDs due to possible procedure. Plan: Repeat chest x-ray. /INGRID Voice ID: [id number] Report ID: [id number]
[2018-07-28] MEDS: POLYETHYL GLY 3350 17 GM/DOSE PO SCH (18:06)
[2018-07-28 18:56] LABS: Urine Appearance CLEAR; Urine Bilirubin NEGATIVE (NEG); Urine Blood NEGATIVE (NEG); Urine Color YELLOW; Urine Glucose NEGATIVE (NEG); Urine Protein NEGATIVE (NEG); Urine Urobilinogen 0.2 mg/dL (0.2-1.0)
[2018-07-28 19:18] LABS: Urine Bacteria <20 /HPF (NONE SEEN); Urine Culture Reflex Order NOT NEEDED; Urine Mucus SLIGHT /HPF (NONE SEEN); Urine RBC <5 /HPF (NONE SEEN)
[2018-07-28] MEDS: DOCUSATE NA 100 MG CAP PO SCH (21:40)
[2018-07-29] MEDS: CEFAZOLIN/SWI 1gm 1 GM/10 ML SYR IV SCH ×3 (00:54→16:38)
[2018-07-29] MEDS: HYDROCODONE/APAP 5/325 MG TAB PO PRN ×3 (06:04→18:40)
--- NOTE | 2018-07-29 06:34 | RAD REPORT ---
EXAM DESCRIPTION: RAD - Chest Single View - 07/29/2018 6:26 am CLINICAL HISTORY: Pneumothorax, chest tube COMPARISON: July 28, July 26 TECHNIQUE: AP portable chest image was obtained 0626 hours . FINDINGS: No change in positioning of the chest 2. Small apical pneumothorax remains. Of an anterior pneumothorax component could be present an occult on a portable exam. Heart and vasculature are norm al. Minimal right costophrenic angle blunting noted and stable. No acute bony abnormality seen. No ac ari aortic findings suspected. IMPRESSION: Small right apical pneumothorax is present similar to comparison. No change in positioning of the chest tube. Anterior component to pneumothorax could be present and occult on portable imaging.
[2018-07-29] MEDS: POLYETHYL GLY 3350 17 GM/DOSE PO SCH (08:11)
[2018-07-29] MEDS: DULOXETINE 30 MG CAP PO SCH (08:11)
[2018-07-29] MEDS: DOCUSATE NA 100 MG CAP PO SCH ×2 (08:11→21:10)
[2018-07-29] MEDS: KETOROLAC 30 MG/ML INJ IV PRN ×3 (08:15→23:06)
--- NOTE | 2018-07-29 12:40 | P.PN ---
Subjective Date of Service: 07/29/18 Chief Complaint: spontaneous pneumothorax Subjective: Improving (Doing well. chest pain from chest tube/ Small apical pneumo. No air leak) Review of Systems Cardiovascular: Chest Pain Physical Examination - Vital Signs Temperature: 98.4 F Blood Pressure: 130/81 Pulse: 69 Respirations: 17 Pulse Ox (%): 97 - Physical Exam General: Alert, In no apparent distress, Oriented x3 HEENT: Atraumatic Neck: Supple Respiratory: Clear to auscultation bilaterally Cardiovascular: No edema, Regular rate/rhythm Assessment & Plan - Problems (Diagnosis) (1) Spontaneous pneumothorax Current Visit: Yes Status: Acute Plan: Doing better. Small apical pneumothorax. Place CT on suction repeat CXRY. No air leak
--- NOTE | 2018-07-29 15:16 | RAD REPORT ---
EXAM DESCRIPTION: RADChest Single View07/29/2018 3:08 pm CLINICAL HISTORY: Right pneumothorax COMPARISON: July 29 FINDINGS: Right pneumothorax has decreased size and is small. No other change. Right chest tube remains in place
--- NOTE | 2018-07-29 15:28 | PN ---
Date of Progress Note: 07/29/2018 Subjective: The patient is seen and examined. Chart reviewed and case discussed with RN and Dr. Cristy vance. The patient overall is doing better. Still complaining of pleuritic pain on the right apex. Medications: Medication list reviewed. Physical Examination: Vital Signs: Temperature 98.4, heart rate 69, blood pressure 130/81, respirations 17, and O2 of 97% on room air. General: Awake, alert, oriented x3. Ill-appearing male. CV: S1, S2. Regular rate and rhythm. Peripheral pulses present. Respiratory: Diminished breath sounds on the right. No stridor. No use of accessory muscles. Gastrointestinal: Abdomen is soft, nontender, nondistended. Positive bowel sounds. Extremities: No clubbing, cyanosis, or edema. Neurologic: Nonfocal. Laboratory Data: Labs are pending at this time. Chest x-ray shows residual right apex pneumothorax, it is similar to comparison. Assessment And Plan: This is a 53-year-old male with: 1.Spontaneous pneumothorax, status post chest tube placement. Chest x-ray this morning, personally reviewed, still shows residual right apex pneumothorax. We will continue chest tube to suction. Nelson reciate Dr. Travis's and Dr. Zamudio's input. No need for pleurodesis at this point. 2.History of testicular cancer, stable. 3.Herniated cervical disk. Continue with pain control, stable. 4.History of arrhythmia. I will continue to monitor on telemetry. 5.Deep venous thrombosis prophylaxis with SCDs. Plan: Likely discharge in the a.m. once the pneumothorax has resolved and the chest tube is disconti nued. /INGRID Voice ID: [id number] Report ID: [id number]
[2018-07-30] MEDS: CEFAZOLIN/SWI 1gm 1 GM/10 ML SYR IV SCH ×3 (00:20→16:48)
[2018-07-30] MEDS: HYDROCODONE/APAP 5/325 MG TAB PO PRN ×4 (02:52→22:57)
[2018-07-30] MEDS: KETOROLAC 30 MG/ML INJ IV PRN ×2 (05:37→20:07)
[2018-07-30 05:57] LABS: Absolute Lymphocytes (CBC) 1.5 K/uL (0.7-4.9); Absolute Monocytes 0.7 K/uL (0.1-1.3); Absolute Neutrophil 2.3 K/uL (1.8-8.0); Eosinophils % 6.9 % (0-4.4); Hematocrit 40.4 % (39.6-49.0); Lymphocytes % 30.1 % (15.3-44.8); MPV 7.7 fL (7.6-11.3); Monocytes % 13.5 % (3.3-12.3); RBC Red Blood Cell Count 4.41 M/uL (4.33-5.43)
[2018-07-30 06:09] LABS: BUN Blood Urea Nitrogen 12 mg/dL (7-18); Bicarbonate 31 mmol/L (21-32); Glucose Level 92 mg/dL (74-106); Potassium 4.3 mmol/L (3.5-5.1); Sodium Level 143 mmol/L (136-145)
[2018-07-30] MEDS: POLYETHYL GLY 3350 17 GM/DOSE PO SCH (08:17)
[2018-07-30] MEDS: DOCUSATE NA 100 MG CAP PO SCH ×2 (08:18→20:07)
[2018-07-30] MEDS: DULOXETINE 30 MG CAP PO SCH (08:18)
--- NOTE | 2018-07-30 08:36 | RAD REPORT ---
EXAM DESCRIPTION: RAD - Chest Single View - 07/30/2018 7:53 am CLINICAL HISTORY: Follow for pneumothorax Chest pain. COMPARISON: Chest Single View dated 07/29/2018; Chest Single View dated 07/29/2018; Chest Pa And Lat ( 2 Views) dated 07/28/2018; Chest Single View dated 07/26/2018 FINDINGS: Portable technique limits examination quality. Right chest tube is in place, directed cephalad. Small right apical pneumothorax remains present ara mated at about 10% of lung volume. Small amount of right pleural fluid is seen. Lungs are grossly lamont ar otherwise. The heart is normal in size.
--- NOTE | 2018-07-30 09:02 | P.PN ---
Subjective Date of Service: 07/30/18 Chief Complaint: spontaneous pneumothorax Subjective: Improving (Patient is doing well has some chest pain still has a persistent small 10% apical pneumothorax as per radiologist report) Review of Systems 10-point ROS is otherwise unremarkable Physical Examination - Vital Signs Temperature: 98.1 F Blood Pressure: 119/72 Pulse: 56 Respirations: 15 Pulse Ox (%): 98 - Physical Exam General: Alert, In no apparent distress Respiratory: Clear to auscultation bilaterally Cardiovascular: No edema, Regular rate/rhythm Assessment & Plan - Problems (Diagnosis) (1) Spontaneous pneumothorax Current Visit: Yes Status: Acute Plan: Patient is still has a persistent right-sided small apical pneumothorax about 10 % does mention by radiology will do a CT scan of the chest he has no air leak
--- NOTE | 2018-07-30 09:52 | RAD REPORT ---
EXAM DESCRIPTION: CT - Thorax Wo Con CLINICAL HISTORY: Chest pain Evaluate for pneumothorax radiologist to call me COMPARISON: Thorax Wo Con dated 07/27/2018 FINDINGS: Right-sided chest tube is in place directed cephalad and anteriorly. There is a very small apical pneumothorax present on the right probably less than 5% of lung volume. Mild linear atelectas is is present in the right base posteriorly. The left lung is grossly clear. No axillary, mediastinal or hilar adenopathy. No concerning bony finding. No gross upper abdominal finding. All CT scans are performed using dose optimization technique as appropriate and may include automated exposure control or mA/KV adjustment according to patient size. IMPRESSION: Minimal (less than 5% of lung volume) right apical pneumothorax is seen.Right chest tube is in place in good position.
--- NOTE | 2018-07-30 11:41 | RAD REPORT ---
EXAM DESCRIPTION: RAD - Chest Single View - 07/30/2018 11:34 am CLINICAL HISTORY: Radiologist to call me with results Chest pain. COMPARISON: Chest Single View dated 07/30/2018; Chest Single View dated 07/29/2018; Chest Single View dated 07/29/2018; Chest Pa And Lat (2 Views) dated 07/28/2018 FINDINGS: Portable technique limits examination quality. Right-sided chest tube is in place. Minimal right apical pneumothorax is seen without significant tahira nge. Left lung is clear. The heart is normal in size. No displaced fractures.
--- NOTE | 2018-07-30 15:28 | P.PN ---
Subjective Date of Service: 07/30/18 Chief Complaint: spontaneous pneumothorax Subjective: No C/O voiced, Improving Patient seen and examined at bedside. No family at bedside. Chart reviewed and case discussed with nursing staff. Patient states she is doing better overall. Still complains of pain with deep breathing. Review of Systems 10-point ROS is otherwise unremarkable Physical Examination - Vital Signs Temperature: 98.0 F Blood Pressure: 152/85 Pulse: 65 Respirations: 14 Pulse Ox (%): 100 - Physical Exam General: Alert, In no apparent distress, Oriented x3, Other (Ill-appearing) HEENT: Atraumatic, PERRLA, EOMI Neck: Supple, JVD not distended Respiratory: Clear to auscultation bilaterally, Normal air movement, Diminished (On right) Cardiovascular: Regular rate/rhythm, Normal S1 S2 Gastrointestinal: Normal bowel sounds, No tenderness Musculoskeletal: No tenderness Integumentary: No rashes Neurological: Normal speech, Normal tone, Normal affect Lymphatics: No axilla or inguinal lymphadenopathy Assessment And Plan - Current Problems (Diagnosis) (1) Spontaneous pneumothorax Current Visit: Yes Status: Acute Plan: status post chest tube placement. Repeat chest x-ray pending. If stable, will put chest to to water-seal and monitor patient. Repeat chest x-ray tomorrow, if stable, will consider removal of chest tube. Appreciate Dr. Travis's and Dr. Zamudio's input. No need for pleurodesis at this point. (2) History of testicular cancer Current Visit: Yes Status: Acute Plan: Stable (3) Herniated disc, cervical Current Visit: Yes Status: Acute Plan: We will continue with pain control. (4) History of cardiac arrhythmia Current Visit: Yes Status: Chronic Plan: We will continue to monitor on telemetry. Stable so far at this time - Plan DVT prophylaxis: SCDs GI prophylaxis: None Diet: Heart healthy Disposition: Pending symptomatic improvement, chest tube removal
[2018-07-31] MEDS: CEFAZOLIN/SWI 1gm 1 GM/10 ML SYR IV SCH ×3 (00:28→17:23)
--- NOTE | 2018-07-31 07:29 | RAD REPORT ---
EXAM DESCRIPTION: RAD - Chest Single View - 07/31/2018 7:13 am CLINICAL HISTORY: Pneumothorax COMPARISON: July 30 TECHNIQUE: AP portable chest image was obtained 0710 hours . FINDINGS: No change in positioning of the right-sided chest tube. Minimal right apical pneumothorax has not changed. No new lung parenchymal process. Heart and vasculature are normal. No new or enlargi ng pleural effusion. No acute bony abnormality seen. No acute aortic findings suspected. IMPRESSION: Stable right apical minimal pneumothorax. No new or progressive finding.
[2018-07-31] MEDS: DOCUSATE NA 100 MG CAP PO SCH ×2 (09:08→20:52)
[2018-07-31] MEDS: HYDROCODONE/APAP 5/325 MG TAB PO PRN (09:08)
[2018-07-31] MEDS: DULOXETINE 30 MG CAP PO SCH (09:09)
[2018-07-31] MEDS: POLYETHYL GLY 3350 17 GM/DOSE PO SCH (09:10)
--- NOTE | 2018-07-31 12:17 | P.PN ---
Subjective Date of Service: 07/31/18 Chief Complaint: spontaneous pneumothorax Subjective: Improving (Patient is doing well no new complaints he has been on water seal overnight no change in the chest x-ray appearance is) Review of Systems Cardiovascular: Chest Pain Physical Examination - Vital Signs Temperature: 97.6 F Blood Pressure: 137/84 Pulse: 64 Respirations: 20 Pulse Ox (%): 98 - Physical Exam General: Alert, In no apparent distress Neck: Supple Respiratory: Clear to auscultation bilaterally Assessment & Plan - Problems (Diagnosis) (1) Spontaneous pneumothorax Current Visit: Yes Status: Acute Plan: Patient is doing well he was on water seal for over 24 hr as been no change in the size of his small apical pneumothorax no air leak patient to have the chest tube removed today possible discharge need some pain medications I have advised him to resume work own Sunday and to avoid any strenuous activity including weights. For the next 2 weeks at least he gets worse and he has more discomfort immediately go to the emergency room with an be need to be transferred to [place] for a vats procedure. Scuba diving would be contraindicated not mention this to the patient follow with me in 2 weeks
--- NOTE | 2018-07-31 12:50 | RAD REPORT ---
EXAM DESCRIPTION: RAD - Chest Single View - 07/31/2018 12:41 pm CLINICAL HISTORY: Right-sided pneumothorax, chest tube removal COMPARISON: July 31 TECHNIQUE: AP portable chest image was obtained during expiration at 1240 hours . FINDINGS: Right apical pneumothorax has enlarged after removal of the chest tube. Approximately 15-2 0% apical pneumothorax is present. Nancy of the right upper lobe is superimposed on the fourth inner c ostal space Heart and vasculature are normal. No pleural effusion. No left hemithorax finding. No acu te bony abnormality seen. No acute aortic findings suspected. IMPRESSION: Enlargement of the right apical pneumothorax to approximately 15-20% following chest tub e removal.
[2018-07-31] MEDS: KETOROLAC 30 MG/ML INJ IV PRN (12:55)
[2018-07-31] MEDS ORDERED: MAGNESIUM CITRATE 300 ML BOT PO ONE (13:00)
--- NOTE | 2018-07-31 16:14 | RAD REPORT ---
EXAM DESCRIPTION: RAD - Chest Single View - 07/31/2018 4:05 pm CLINICAL HISTORY: f/u for pneumothorax Chest pain. COMPARISON: Chest Single View dated 07/31/2018; Chest Single View dated 07/31/2018; Chest Single View dated 07/30/2018; Chest Single View dated 07/30/2018 FINDINGS: Portable technique limits examination quality. Emphysematous changes are present. Small right apical pneumothorax is again noted, however appears mi ldly decreased in size relative to comparative study from earlier same date.
--- NOTE | 2018-07-31 16:36 | PN ---
Date of Progress Note: 07/31/2018 Subjective: The patient is awake, alert. No complaint. Chest x-ray of suction reveals no pneumotho rax therefore patient is eager to have his chest tube out. Objective: Vital signs: His vital signs are stable. Afebrile. Chest: Clear. Procedure Note: Under sterile condition dressing removed and then suture cut and then chest tube rem marquita in the standard fashion and occlusive dressing was applied. Disposition: The patient tolerated the procedure, in stable condition. Assessment: Status post spontaneous pneumothorax and chest tube placement. Recommendation: We will check an x-ray this afternoon. Should that be okay, the patient is cleared from surgery standpoint to go home. Follow up in my office in 2 weeks. MALAIKA/INGRID Voice ID: [id number] Report ID: [id number]
--- NOTE | 2018-07-31 17:36 | P.PN ---
Subjective Date of Service: 07/31/18 Chief Complaint: spontaneous pneumothorax Subjective: Improving Patient seen and examined at bedside. No family at bedside. Chart reviewed and case discussed with nursing staff. Patient states she is doing better overall. Chest tube removed today. No complaints of pain. Breathing normal. Review of Systems 10-point ROS is otherwise unremarkable Physical Examination - Vital Signs Temperature: 97.6 F Blood Pressure: 137/84 Pulse: 64 Respirations: 20 Pulse Ox (%): 98 - Physical Exam General: Alert, In no apparent distress, Oriented x3 HEENT: Atraumatic, PERRLA, EOMI Neck: Supple, JVD not distended Respiratory: Clear to auscultation bilaterally, Normal air movement, Other ( inciscion site dry, intact and clean.) Cardiovascular: Regular rate/rhythm, Normal S1 S2 Gastrointestinal: Normal bowel sounds, No tenderness Musculoskeletal: No tenderness Integumentary: No rashes Neurological: Normal speech, Normal tone, Normal affect Assessment And Plan - Current Problems (Diagnosis) (1) Spontaneous pneumothorax Current Visit: Yes Status: Acute Plan: status post chest tube placement. Repeat chest x-ray pending. If stable, will put chest to to water-seal and monitor patient. Chest tube now out. Repeat CXR tomorrow. Continue to keep non rebreather overnight. Appreciate Dr. Travis's and Dr. Zamudio's input. No need for pleurodesis at this point. (2) History of testicular cancer Current Visit: Yes Status: Acute Plan: Stable (3) Herniated disc, cervical Current Visit: Yes Status: Acute Plan: We will continue with pain control. (4) History of cardiac arrhythmia Current Visit: Yes Status: Chronic Plan: We will continue to monitor on telemetry. Stable so far at this time - Plan DVT prophylaxis: SCDs GI prophylaxis: None Diet: Heart healthy Disposition: Pending symptomatic improvement, chest tube removal
[2018-07-31 17:48] VITALS: O2SAT 100
[2018-07-31] MEDS ORDERED: MAGNESIUM CITRATE 300 ML BOT PO SCH (18:00)
[2018-08-01] MEDS: CEFAZOLIN/SWI 1gm 1 GM/10 ML SYR IV SCH (00:36)
--- NOTE | 2018-08-01 08:17 | RAD REPORT ---
EXAM DESCRIPTION: RAD - Chest Single View - 08/01/2018 8:02 am CLINICAL HISTORY: Pneumothorax COMPARISON: July 31 imaging TECHNIQUE: AP portable chest image was obtained 0758 hours . FINDINGS: Minimal right apical pneumothorax remains. Pneumothorax is stable from the final examinati on from 07/31. Heart and vasculature are normal. No measurable pleural effusion and no pneumothorax. No acute bony abnormality seen. No acute aortic findings suspected. IMPRESSION: Minimal right apical pneumothorax stable from the final examination of 07/31.
[2018-08-01 08:28] VITALS: BP 141/79; TEMP 97.6
--- NOTE | 2018-08-01 08:41 | P.PN ---
Subjective Date of Service: 08/01/18 Chief Complaint: spontaneous pneumothorax Subjective: Improving (Patient is doing much better denies any chest pain apart from the discomfort in the surgical insertion site his chest tube was removed yesterday) Review of Systems Unremarkable Physical Examination - Vital Signs Temperature: 97.6 F Blood Pressure: 141/79 Pulse: 65 Respirations: 20 Pulse Ox (%): 97 - Physical Exam General: Alert, In no apparent distress Neck: Supple Respiratory: Clear to auscultation bilaterally Assessment & Plan - Problems (Diagnosis) (1) Spontaneous pneumothorax Current Visit: Yes Status: Acute Plan: Patient is doing much better the chest x-ray done today shows minimal apical pneumothorax after the chest tube removal yesterday he developed 20% pneumothorax in's now resolved on high concentrations of oxygen patient to be discharged I have advised him to his restrict any strenuous securities at least for the next 2 weeks follow up with me in 2 weeks with preclinical chest x-ray
[2018-08-01] MEDS: DULOXETINE 30 MG CAP PO SCH (08:58)
[2018-08-01] MEDS: DOCUSATE NA 100 MG CAP PO SCH (08:58)
[2018-08-01] MEDS: POLYETHYL GLY 3350 17 GM/DOSE PO SCH (08:59)
--- NOTE | 2018-08-01 09:52 | P.DS ---
Admission Date: 07/27/18 Discharge Date: 08/01/18 Disposition: ROUTINE DISCHARGE Discharge Condition: GOOD Reason for Admission: spontaneous pneumothorax Consultations: General surgery, Dr. Travis Pulmonology, Dr. Zamudio Procedures: Right-sided chest tube placement Right-sided chest tube removal - Problems (1) Spontaneous pneumothorax Current Visit: Yes Status: Acute (2) History of testicular cancer Current Visit: Yes Status: Acute (3) Herniated disc, cervical Current Visit: Yes Status: Acute (4) History of cardiac arrhythmia Current Visit: Yes Status: Chronic Brief History of Present Illness: Mr Gaitan is a 53 years old male with history of testicular cancer, paroxysmal atrial fibrillation (not anticoagulated), cervical herniated discus, start this afternoon with right flank pain. He was slightly SOB as well. Then, the patient was brought to ED for evaluation. CXR was remarkable for right side pneumothorax. Dr Hamilton then placed a chest tube. New CXR shows successful expansion of the right lung. The patient has remote history of smoking in his teenager, currently he chew tobacco. Lab work mostly unremarkable. Hospital Course: Patient was admitted for spontaneous pneumothorax on the right side. A chest tube was placed on the right side. Patient's chest x-ray showed successful expansion of the right lung. Pulmonology was consulted along with Dr. Travis. It was decided no need for pleurodesis during this stay. Patient stay was complicated by slight worsening of the pneumothorax. Chest tube was kept in for another day and then was removed after being kept sealed for 1 day. Post removal, his pneumothorax reoccurred at 20%. He was kept overnight on high- dose oxygen via non-rebreather mask. Repeat chest x-ray after showed improvement in the pneumothorax. Symptomatically, patient's pain resolved and his breathing was back to baseline. He otherwise remained stable throughout the stay. Prior to discharge, he was alert oriented x3, in no acute distress and ambulating without any concerns. His breathing was normal, satting well on room air. His pain had resolved. Chest tube dressing was clean, dry intact. He was educated on the disease process and treatment plan. He was recommended to do no strenuous lifting for the next 2 weeks. He was recommended to follow up with his primary care physician in 2-3 days and follow up with pulmonology in 2 weeks. He is also follow up with Dr. Travis in 2 weeks. All questions were answered, he verbalized understanding. He was then discharged home in a safe and stable manner. Vital Signs/Physical Exam: Temp Pulse Resp BP Pulse Ox 97.6 F 65 20 141/79 H 97 08/01/18 08:41 08/01/18 08:41 08/01/18 08:41 08/01/18 08:41 08/01/18 08:41 General: Alert, In no apparent distress, Oriented x3 HEENT: Atraumatic, PERRLA, EOMI Neck: Supple, JVD not distended Respiratory: Clear to auscultation bilaterally, Normal air movement Cardiovascular: Regular rate/rhythm, Normal S1 S2 Gastrointestinal: Normal bowel sounds, No tenderness Musculoskeletal: No tenderness Integumentary: No rashes Neurological: Normal speech, Normal tone, Normal affect Lymphatics: No axilla or inguinal lymphadenopathy Laboratory Data at Discharge: WBC 4.8 K/uL (4.3-10.9) D 07/30/18 05:46 Hgb 13.7 g/dL (13.6-17.9) 07/30/18 05:46 Hct 40.4 % (39.6-49.0) 07/30/18 05:46 Plt Count 214 K/uL (152-406) 07/30/18 05:46 PT 12.3 SECONDS (9.5-12.5) 07/26/18 19:39 INR 1.04 07/26/18 19:39 Sodium 143 mmol/L (136-145) 07/30/18 05:46 Potassium 4.3 mmol/L (3.5-5.1) 07/30/18 05:46 BUN 12 mg/dL (7-18) 07/30/18 05:46 Creatinine 0.86 mg/dL (0.55-1.3) 07/30/18 05:46 Glucose 92 mg/dL (74-106) 07/30/18 05:46 Magnesium 2.3 mg/dL (1.8-2.4) 07/26/18 19:39 Total Bilirubin 0.4 mg/dL (0.2-1.0) 07/26/18 19:39 AST 24 U/L (15-37) 07/26/18 19:39 ALT 23 U/L (12-78) 07/26/18 19:39 Alkaline Phosphatase 68 U/L (45-117) 07/26/18 19:39 Home Medications: Duloxetine [Cymbalta *] 60 mg PO DAILY 07/27/18 Tramadol HCl [Ultram] 50 mg PO Q6HP PRN #10 tablet 08/01/18 New Medications: Tramadol HCl [Ultram] 50 mg PO Q6HP PRN #10 tablet PRN Reason: Pain Scale 5-7 (Moderate) Patient Discharge Instructions: Please follow up with the primary care physician in 2-3 days. Please follow up with pulmonology in 2 weeks. Please follow up with Dr. Travis in 2 weeks. Please return to the emergency room for worsening symptoms Diet: Regular Activity: No lifting more than 10 lbs Followup: Anant Travis MD [ACTIVE - CAN ADMIT] - Shine Christine DO [Primary Care Provider] - 2-3 Days Arnulfo Zamudio MD [ACTIVE - CAN ADMIT] - Time spent managing pt's care (in minutes): 55
== END 2018-08-01 11:22 | disposition home or self-care (01) | DRG 201 ==
LOC: ER 18:01 → ERHOLD 07-27 00:55 → 2ND 07-27 01:08
PROVIDERS: ADMIT Internal Medicine; ATTEND Family Medicine
PROC: 0W9930Z Drainage of Right Pleural Cavity with Drainage Device, Percutaneous Approach (ICD-10-PCS; principal; 2018-07-27)
DX: J93.83 Other pneumothorax (principal); I48.0 Paroxysmal atrial fibrillation; M50.20 Other cervical disc displacement, unspecified cervical region; F17.220 Nicotine dependence, chewing tobacco, uncomplicated; Z85.47 Personal history of malignant neoplasm of testis; Z88.5 Allergy status to narcotic agent; Z91.013 Allergy to seafood
CPT/HCPCS: 36415; 71045; 71046; 71250; 80048; 80076; 81001; 83735; 83880; 84484; 85025; 85610; 93005; 94760; 96361; 96374; 96375; 99291; J0690; J1170; J2405; J2704; J7030

== ENCOUNTER 2019-05-11 13:16 | Emergency (ER) | payer BC ==
--- OUTSIDE RECORDS SUMMARY | 2019-05-11 13:18 | XMS REPORT ---
:1965 [facility] Address [address] [place] [address] [address] [address] Care Team Providers Name Role Phone DR HIEU OCAMPO Unavailable Unavailable Problems This patient has no known problems. Allergies, Adverse Reactions, Alerts This patient has no known allergies or adverse reactions. Medications This patient has no known medications. Encounters Start End Encounter Admission Attending Care Care Encounter Date/Time Date/Time Type Type Clinicians Facility Department ID 2017-12-13 Inpatient HIUE ONEIL Xi NGUYEN [id number] 14:00:00 2017-11-29 Inpatient HIEU ONEIL [id number] 13:00:00
[2019-05-11] MEDS ORDERED: DIAZEPAM 10 MG/2 ML INJ SYRINGE ONE (14:46)
[2019-05-11] MEDS ORDERED: FENTANYL CITR 100 MCG/2 ML ONE (14:47)
[2019-05-11] MEDS ORDERED: KETOROLAC 30 MG/ML INJ ONE (14:47)
[2019-05-11] MEDS ORDERED: dexAMETHasone 4 MG/ML VIAL ONE (14:47)
--- NOTE | 2019-05-11 16:19 | RAD REPORT ---
EXAM DESCRIPTION: RAD - Chest Single View - 05/11/2019 4:05 pm CLINICAL HISTORY: right thoracic pain, hx of pneumo Chest pain. COMPARISON: Chest Pa And Lat (2 Views) dated 08/13/2018; Chest Single View dated 08/01/2018; Chest Sing le View dated 07/31/2018; Chest Single View dated 07/31/2018 FINDINGS: Portable technique limits examination quality. The lungs are emphysematous but grossly clear. The heart is normal in size. No displaced fractures. IMPRESSION: COPD.
--- NOTE | 2019-05-11 16:54 | EDPHYS ---
Physician Documentation [facility] Name: Owen Gaitan Age: 53 yrs Sex: Male : 1965 Arrival Date: 05/11/2019 Time: 13:20 Bed 18 Private MD: TONY Physician Akash Santacruz HPI: 05/10 13:56 This 53 yrs old Male presents to ER via Ambulatory with complaints of Back jmm Pain. 13:56 The patient presents with pain that is acute, and an injury. Onset: The jmm symptoms/episode began/occurred acutely, 2 day(s) ago. The pain radiates to the right mid back and right low back. Associated signs and symptoms: Pertinent negatives: abdominal pain, chest pain, dysuria, fever, headache, hematuria, incontinence, nausea, numbness, tingling, urinary retention, vomiting, weakness. Modifying factors: The patient symptoms are alleviated by heat application, the patient symptoms are aggravated by any movement. This is a 53 year old male with a history of afib that presents to the ED with complaints of right sided back pain beginning after cutting a bolt 2 days ago. Patient states the pain beginning at the right midback and radiates down the spine. Denies urinary or bowel problems. Patient denies chest pain, denies shortness of breath. . Historical: - Allergies: 13:23 Iodine; iw 13:23 Shellfish Containing Products; iw 13:23 Morphine; iw - Home Meds: 13:32 Lyrica Oral [Active]; Tramadol Oral [Active]; iw - PMHx: 13:32 Arrhythmia- possibly afib; testicular CA; iw - PSHx: 13:32 spinal fusion; iw - Immunization history:: Adult Immunizations not up to date. - Social history:: Smoking status: Patient reports use of chewing tobacco. ROS: 13:56 Constitutional: Negative for fever, chills, and weight loss, Cardiovascular: Negative jmm for chest pain, palpitations, and edema, Respiratory: Negative for shortness of breath, cough, wheezing, and pleuritic chest pain, Abdomen/GI: Negative for abdominal pain, nausea, vomiting, diarrhea, and constipation. 13:56 Back: Positive for pain with movement. 13:56 All other systems are negative. Exam: 13:56 Constitutional: This is a well developed, well nourished patient who is awake, alert, jmm and in no acute distress. Head/Face: atraumatic. Eyes: EOMI, no conjunctival erythema appreciated ENT: Moist Mucus Membranes Neck: Trachea midline, Supple Chest/axilla: Normal chest wall appearance and motion. Cardiovascular: Regular rate and rhythm. No edema appreciated Respiratory: Normal respirations, no respiratory distress appreciated Abdomen/GI: Non distended, soft 13:56 Back: ROM is painful, vertebral tenderness, is not appreciated. 13:56 Neuro: Orientation: is normal, Mentation: is normal, Memory: is normal. 13:56 Psych: Behavior/mood is pleasant, cooperative. Vital Signs: 13:33 BP 123 / 81; Pulse 79; Resp 16; Temp 98.0; Pulse Ox 100% on R/A; Weight 63.5 kg; Height iw 5 ft. 7 in. (170.18 cm); Pain 10/10; 14:48 BP 118 / 76; Pulse 79 RA; kj1 14:50 BP 107 / 63; Pulse 78 LA; kj1 16:00 BP 107 / 77; Pulse 64; Resp 16 S; Pulse Ox 100% on R/A; jl7 16:50 BP 117 / 72; Pulse 63; Resp 17 S; Pulse Ox 100% on R/A; ia1 13:33 Body Mass Index 21.93 (63.50 kg, 170.18 cm) iw MDM: 13:56 Patient medically screened. [facility] 16:51 Data reviewed: vital signs, nurses notes. Counseling: I had a detailed discussion with [facility] the patient and/or guardian regarding: the historical points, exam findings, and any diagnostic results supporting the discharge/admit diagnosis, radiology results, the need for outpatient follow up, to return to the emergency department if symptoms worsen or persist or if there are any questions or concerns that arise at home. ED course: Pain has decreased in the ED. Patient is able to now ambulate without difficulty. I do not suspect dissection, cord compression. Most likely MS pain. Patient is advised to follow up with pcp and otherwise given strict return precautions. Patient understood and agrees with the plan of care. . 05/10 14:23 Order name: Creatinine for Radiology; Complete Time: 15:11 [facility] 05/10 15:11 Order name: Chest Single View XRAY; Complete Time: 16:29 [facility] 05/10 13:57 Order name: Bilateral blood pressure; Complete Time: 14:47 [facility] 05/10 13:57 Order name: Saline Lock; Complete Time: 14:47 [facility] Administered Medications: 14:40 Drug: Ketorolac 30 mg Route: IVP; Site: right antecubital; ca1 15:15 Follow up: Response: No adverse reaction; Pain is decreased jl7 14:42 Drug: fentaNYL (PF) 50 mcg Route: IVP; Site: right antecubital; ca1 15:15 Follow up: Response: No adverse reaction; Pain is decreased jl7 14:45 Drug: Valium 5 mg Route: IVP; Site: right antecubital; ca1 15:15 Follow up: Response: No adverse reaction; Pain is decreased jl7 14:50 Drug: Decadron - Dexamethasone 10 mg Route: IVP; Site: right antecubital; ca1 15:15 Follow up: Response: No adverse reaction; Pain is decreased jl7 Disposition: 18:23 Co-signature as Attending Physician, Akash Santacruz MD., cha Disposition: 05/11/19 16:53 Discharged to Home. Impression: Strain of muscle and tendon of back wall of thorax. - Condition is Stable. - Discharge Instructions: Thoracic Strain. - Prescriptions for Zanaflex 4 mg Oral Tablet - take 1 tablet by ORAL route every 8 hours As needed; 20 tablet. - Medication Reconciliation Form, Thank You Letter, Antibiotic Education, Prescription Opioid Use, Work release form form. - Follow up: Private Physician; When: 2 - 3 days; Reason: Recheck today's complaints, Continuance of care, Re-evaluation by your physician. Signatures: Dispatcher [employer] Akash Capps MD MD cha Mickail, Joel, PA PA jmm Williams, Irene, RN RN iw Leal, Jahala, RN RN jl7 Anne-Marie Jones RN RN ca1 Corrections: (The following items were deleted from the chart) 17:15 16:53 05/11/2019 16:53 Discharged to Home. Impression: Strain of muscle and tendon of jl7 back wall of thorax. Condition is Stable. Forms are Medication Reconciliation Form, Thank You Letter, Antibiotic Education, Prescription Opioid Use. Follow up: Private Physician; When: 2 - 3 days; Reason: Recheck today's complaints, Continuance of care, Re-evaluation by your physician. mariana
--- NOTE | 2019-05-11 16:54 | ER ---
Nurse's Notes [facility] Name: Owen Gaitan Age: 53 yrs Sex: Male : 1965 Arrival Date: 05/11/2019 Time: 13:20 Bed 18 Private MD: Diagnosis: Strain of muscle and tendon of back wall of thorax Presentation: 05/10 13:31 Chief complaint: Patient states: mid right back pain radiating to low back since Sunday iw after working. Coronavirus screen: The patient has NOT traveled to [place] in the past 14 days. Proceed with normal triage procedures. Ebola Screen: Patient negative for fever greater than or equal to 101.5 degrees Fahrenheit, and additional compatible Ebola Virus Disease symptoms Patient denies exposure to infectious person. Patient denies travel to an Ebola-affected area in the 21 days before illness onset. No symptoms or risks identified at this time. Initial Sepsis Screen: Does the patient meet any 2 criteria? No. Patient's initial sepsis screen is negative. Does the patient have a suspected source of infection? No. Patient's initial sepsis screen is negative. Risk Assessment: Do you want to hurt yourself or someone else? Patient reports no desire to harm self or others. 13:31 Method Of Arrival: Ambulatory iw 13:31 Acuity: JAIR 4 iw 14:24 Acuity: JAIR 3 iw Historical: - Allergies: 13:23 Iodine; iw 13:23 Shellfish Containing Products; iw 13:23 Morphine; iw - Home Meds: 13:32 Lyrica Oral [Active]; Tramadol Oral [Active]; iw - PMHx: 13:32 Arrhythmia- possibly afib; testicular CA; iw - PSHx: 13:32 spinal fusion; iw - Immunization history:: Adult Immunizations not up to date. - Social history:: Smoking status: Patient reports use of chewing tobacco. Screenin:00 Abuse screen: Denies threats or abuse. Denies injuries from another. Nutritional jl7 screening: No deficits noted. Tuberculosis screening: No symptoms or risk factors identified. Fall Risk IV access (20 points). Total Keen Fall Scale indicates No Risk (0-24 pts). Assessment: 14:00 General: Appears in no apparent distress. uncomfortable, Behavior is calm, cooperative, jl7 appropriate for age. Pain: Complains of pain in mid back area Pain radiates to low back area Pain currently is 10 out of 10 on a pain scale. Pain began 2-3 days ago. Neuro: Level of Consciousness is awake, alert, obeys commands, Oriented to person, place, time, situation, Gait is steady. Cardiovascular: Patient's skin is warm and dry. Respiratory: Airway is patent Respiratory effort is even, unlabored, Respiratory pattern is regular, symmetrical. Derm: Skin is pink, warm \T\ dry. 15:00 Reassessment: Patient appears in no apparent distress at this time. Patient and/or jl7 family updated on plan of care and expected duration. Pain level reassessed. Patient is alert, oriented x 3, equal unlabored respirations, skin warm/dry/pink. Patient states feeling better. Patient states symptoms have improved. 16:26 Reassessment: Pt reports decreased pain, rated 2/10 at this time. jl7 Vital Signs: 13:33 BP 123 / 81; Pulse 79; Resp 16; Temp 98.0; Pulse Ox 100% on R/A; Weight 63.5 kg; Height iw 5 ft. 7 in. (170.18 cm); Pain 10/10; 14:48 BP 118 / 76; Pulse 79 RA; kj1 14:50 BP 107 / 63; Pulse 78 LA; kj1 16:00 BP 107 / 77; Pulse 64; Resp 16 S; Pulse Ox 100% on R/A; jl7 16:50 BP 117 / 72; Pulse 63; Resp 17 S; Pulse Ox 100% on R/A; ia1 13:33 Body Mass Index 21.93 (63.50 kg, 170.18 cm) ED Course: 13:20 Patient arrived in ED. as 13:32 Triage completed. iw 13:40 Óscar Leyva PA is PHCP. [facility] 13:40 Akash Santacruz MD is Attending Physician. [facility] 13:43 Nikolay Nolan RN is Primary Nurse. jl7 14:48 Initial lab(s) drawn, by me, sent to lab. Inserted saline lock: 22 gauge in right kj1 antecubital area, using aseptic technique. Blood collected. 15:00 Patient has correct armband on for positive identification. Placed in gown. Bed in low jl7 position. Call light in reach. Side rails up X 1. Pulse ox on. NIBP on. 16:05 Chest Single View XRAY In Process Unspecified. EDMS 17:01 IV discontinued, intact, bleeding controlled, No redness/swelling at site. Pressure ia1 dressing applied. 17:14 No provider procedures requiring assistance completed. jl7 Administered Medications: 14:40 Drug: Ketorolac 30 mg Route: IVP; Site: right antecubital; ca1 15:15 Follow up: Response: No adverse reaction; Pain is decreased jl7 14:42 Drug: fentaNYL (PF) 50 mcg Route: IVP; Site: right antecubital; ca1 15:15 Follow up: Response: No adverse reaction; Pain is decreased jl7 14:45 Drug: Valium 5 mg Route: IVP; Site: right antecubital; ca1 15:15 Follow up: Response: No adverse reaction; Pain is decreased jl7 14:50 Drug: Decadron - Dexamethasone 10 mg Route: IVP; Site: right antecubital; ca1 15:15 Follow up: Response: No adverse reaction; Pain is decreased jl7 Outcome: 16:53 Discharge ordered by . mariana 17:14 Attestation : I agree with everything documented by Radha Student Nurse. jl7 17:14 Discharged to home ambulatory, with family. 17:14 Condition: stable 17:14 Discharge instructions given to patient, family, Instructed on discharge instructions, follow up and referral plans. medication usage, Demonstrated understanding of instructions, follow-up care, medications, Prescriptions given X 1. 17:15 Patient left the ED. jl7 Signatures: Dispatcher [employer] EDMS Óscar Leyva PA PA jmm Martinez, Amelia as Williams, Irene, Nikolay Manriquez RN, RN RN jl7 Acob, Cheryl, RN RN ca1 Jackson, Kandis kj1 Radha Rojas ia1
[2019-05-11 18:26] VITALS: TEMP 98; O2SAT 100
[2019-05-11 18:29] VITALS: BP 117/72
== END 2019-05-11 17:15 | disposition home or self-care (01) ==
LOC: ER 13:16
DX: S29.012A Strain of muscle and tendon of back wall of thorax, initial encounter (principal); X50.1XXA Overexertion from prolonged static or awkward postures, initial encounter; Y93.89 Activity, other specified; Y92.9 Unspecified place or not applicable; Y99.9 Unspecified external cause status; Z72.0 Tobacco use; Z91.09 Other allergy status, other than to drugs and biological substances; Z91.013 Allergy to seafood; Z88.6 Allergy status to analgesic agent; Z85.47 Personal history of malignant neoplasm of testis
CPT/HCPCS: 36415; 71045; 96375; 96374; 99284; J3360; J3010

== ENCOUNTER → 2023-04-01 | Emergency (ER) | payer BC ==
[~2023-04-01] MED LIST: GABAPENTIN 300 MG CAP ONE; KETOROLAC 30 MG/ML INJ ONE
--- NOTE | 2023-04-01 13:55 | RAD REPORT ---
EXAM DESCRIPTION: CT - Thoracic Spine W/o Cont - 04/01/2023 1:42 pm CLINICAL HISTORY: PAIN COMPARISON: CT HEAD CSPINE MPR WO CONTRAST dated 05/25/2015; CT HEAD CSPINE MPR WO CONTRAST dated 05/12 TECHNIQUE: Axial CT imaging through the thoracic spine was performed with coronal and sagittal re-fo rmatted images. All CT scans are performed using dose optimization technique as appropriate and may include automated exposure control or mA/KV adjustment according to patient size. FINDINGS: Vertebral body heights and disc spaces are maintained. A compression fracture is not prese nt. No significant disc space narrowing. Mild thoracolumbar curvature. Small disc bulges present at T 6-T7, T7-T8 and T10-11, and T11-12. . Thoracic spine alignment is within normal limits. No paraspinal masses or hematoma. Intervertebral disc detail is inherently limited on CT without gross findings of canal compromise. IMPRESSION: No thoracic spine fracture or traumatic malalignment. No high-grade central spinal steno sis to explain lower extremity weakness.
--- NOTE | 2023-04-01 14:00 | RAD REPORT ---
EXAM DESCRIPTION: CT - Spine Lumbar Wo Con - 04/01/2023 1:43 pm CLINICAL HISTORY: RADICULOPATHY COMPARISON: Thoracic Spine Wo Contr dated 07/24/2018 TECHNIQUE: Axial noncontrast CT imaging of the lumbar spine was performed with coronal and sagittal re-formatted images. All CT scans are performed using dose optimization technique as appropriate and may include automated exposure control or mA/KV adjustment according to patient size. FINDINGS: No acute lumbar spine fracture seen. No aggressive marrow pattern or malalignment. Multilevel degenerative disc disease. L1-L2: Mild subligamentous disc bulge as well as facet hypertrophy with mild bilateral neural foramin al narrowing but no central spinal stenosis. L2-L3: Mild subligamentous disc bulge with facet and ligamentum flavum hypertrophy results in mild ce ntral spinal stenosis and mild bilateral neural foraminal narrowing. L3-L4: Subligamentous disc bulge with facet and ligamentum flavum hypertrophy results in mild bilater al neural foraminal narrowing. Mild central spinal stenosis is present. L4-L5 broad-based disc bulge with ligamentum flavum facet hypertrophy results in moderate central spi nal stenosis and moderate bilateral neural foraminal narrowing. L5-S1: Subligamentous disc bulge with facet and ligamentum flavum hypertrophy which results in modera te bilateral neural foraminal narrowing. IMPRESSION: No acute fracture of the lumbar spine. Multilevel degenerate disc disease with varying d egrees of neural foraminal narrowing and central spinal stenosis. Spinal stenosis is at most moderate at L4-5.
--- NOTE | 2023-04-01 14:11 | ER ---
Nurse's Notes [facility] Name: Owen Gaitan Age: 57 yrs Sex: Male : 1965 Arrival Date: 04/01/2023 Time: 12:47 Bed 13 Private MD: Diagnosis: Intervertebral disc disorders with radiculopathy, lumbar region Presentation: 04/01 13:00 Chief complaint: Intermittent sharp low back pain with bilateral leg weakness x 3 days. hb Denies incontinence/recent injury. Sees Dr. Tang for mid back pain. Coronavirus screen: At this time, the client does not indicate any symptoms associated with coronavirus-19. Ebola Screen: No symptoms or risks identified at this time. Initial Sepsis Screen: Does the patient meet any 2 criteria? No. Patient's initial sepsis screen is negative. Does the patient have a suspected source of infection? No. Patient's initial sepsis screen is negative. Risk Assessment: Do you want to hurt yourself or someone else? Patient reports no desire to harm self or others. Onset of symptoms was March 29, 2023. 13:00 Method Of Arrival: Ambulatory hb 13:00 Acuity: JAIR 3 hb Historical: - Allergies: 13:01 Iodine; hb 13:01 Morphine; hb 13:01 Shellfish Containing Products; hb - Home Meds: 13:01 Cymbalta 60 mg oral capsule,delayed release (e.c.) [Active]; hb 13:21 Baclofen Oral [Active]; tl4 - PMHx: 13:01 Arrhythmia- possibly afib; testicular CA; hb - PSHx: 13:03 Back; hb - Immunization history:: Adult Immunizations up to date. - Social history:: Smoking status: Patient denies any tobacco usage or history of. - Family history:: not pertinent. - Hospitalizations: : No recent hospitalization is reported. Screenin:15 [facility] ED Fall Risk Assessment (Adult) History of falling in the last 3 months, tl4 including since admission Yes- fall prone (multiple falls) (3 pts) Confusion or Disorientation No (0 pts) Intoxicated or Sedated No (0 pts) Impaired Gait No (0 pts) Mobility Assist Device Used No (0 pt) Altered Elimination No (0 pt) Score/Fall Risk Level 3 or more points = High Risk Oriented to surroundings, Maintained a safe environment, Educated pt \T\ family on fall prevention, incl call for assistance when getting out of bed, Assessed \T\ reinforced patient's understanding of fall precautions, Provided non-skid footwear, Hourly rounding (assess needs \T\ fall precautionary measures) done. Abuse screen: Denies threats or abuse. Nutritional screening: No deficits noted. Tuberculosis screening: No symptoms or risk factors identified. Assessment: 13:12 General: Appears uncomfortable, Behavior is calm, cooperative. Pain: Complains of pain tl4 in back Pain currently is 5 out of 10 on a pain scale. Quality of pain is described as shooting. Neuro: Reports Intermittent loss of ability to walk. Denies paresthesias numbness. Cardiovascular: No deficits noted. Denies chest pain, lightheadedness, palpitations. Respiratory: No deficits noted. Breath sounds are clear bilaterally. Denies shortness of breath. GI: No deficits noted. No signs and/or symptoms were reported involving the gastrointestinal system. : No deficits noted. No signs and/or symptoms were reported regarding the genitourinary system. Musculoskeletal: Reports pain in back. Vital Signs: 13:00 BP 133 / 86; Pulse 77; Resp 16; Temp 97.8; Pulse Ox 99% on R/A; Weight 63.5 kg; Height hb 5 ft. 7 in. ; Pain 3/10; 13:15 BP 138 / 83; Pulse 74; Resp 18; Pulse Ox 100% ; Pain 8/10; tl4 13:00 Body Mass Index 21.93 (63.50 kg, 170.18 cm) hb 13:00 Pain Scale: Adult hb 13:15 Pain Scale: Adult tl4 Vitals: 13:15 Cardiac Rhythm Assessment Regular. tl4 Narda Coma Score: 13:15 Eye Response: spontaneous(4). Motor Response: obeys commands(6). Verbal Response: tl4 oriented(5). Total: 15. ED Course: 12:50 Patient arrived in ED. im 12:53 Mich Del Rio MD is Attending Physician. rn 13:01 Rafael Mason is Primary Nurse. tl4 13:01 Triage completed. hb 13:03 Arm band placed on. hb 13:17 Patient has correct armband on for positive identification. Placed in gown. Bed in low tl4 position. Call light in reach. Side rails up X 1. Adult w/ patient. Provided Education on: ED process. Client placed on continuous cardiac and pulse oximetry monitoring. NIBP monitoring applied. Door closed. Noise minimized. Moved to private room. Warm blanket given. 13:17 No provider procedures requiring assistance completed. tl4 13:44 CT Lumbar Spine Wo Con In Process Unspecified. EDMS 13:44 CT Thoracic Spine Wo Cont In Process Unspecified. EDMS 14:56 Patient did not have IV access during this emergency room visit. tl4 Administered Medications: 14:49 Drug: Ketorolac IM 15 mg IM once Route: IM; Site: left ventrogluteal; tl4 14:59 Follow up: Response: No adverse reaction tl4 14:49 Drug: Gabapentin PO 300 mg PO once Route: PO; tl4 14:58 Follow up: Response: Medication administered at discharge. tl4 Medication: 13:15 VIS not applicable for this client. tl4 Outcome: 14:10 Discharge ordered by . rn 14:57 Discharged to home ambulatory, with family, tl4 14:57 Condition: stable 14:57 Discharge instructions given to patient, family, Instructed on discharge instructions, follow up and referral plans. medication usage, Demonstrated understanding of instructions, follow-up care, medications, 14:58 Patient left the ED. tl4 Signatures: Dispatcher [employer] EDMich England MD MD rn Baxter, Heather, RN RN hb Mendoza, Itzel im Logdahl, Toni tl4 Corrections: (The following items were deleted from the chart) 13:03 13:01 PSHx: Baxk (testicular CA); hb hb 13:03 13:01 PSHx: Back (testicular CA); hb hb
--- NOTE | 2023-04-01 14:11 | EDPHYS ---
Physician Documentation [facility] Name: Owen Gaitan Age: 57 yrs Sex: Male : 1965 Arrival Date: 04/01/2023 Time: 12:47 Bed 13 Private MD: ED Physician Mich Del Rio HPI: 04/01 13:10 This 57 yrs old Male presents to ER via Ambulatory with complaints of Low Back Pain. rn 13:10 The patient presents with pain that is acute, that is chronic, with no known mechanism rn of injury. The symptoms are located in the low back, lumbar area. The pain does not radiate. 13:11 Onset: The symptoms/episode began/occurred 3 day(s) ago. Modifying factors: The patient rn symptoms are alleviated by nothing, the patient symptoms are aggravated by any movement. Associated signs and symptoms: Pertinent positives: none Pertinent negatives: chest pain, fever, incontinence, urinary retention, weakness. Severity of symptoms: At their worst the symptoms were moderate, in the emergency department the symptoms have improved. The patient has experienced similar episodes in the past. Pt reports low back pain, began 3 days ago. Has hx of chronic back pain and has had cervical surgery in past. No recent trauma. No fever. Does not use IV drugs. Denies any weakness to lower extremities. No bowel or bladder problems.. Historical: - Allergies: 13:01 Iodine; hb 13:01 Morphine; hb 13:01 Shellfish Containing Products; hb - Home Meds: 13:01 Cymbalta 60 mg oral capsule,delayed release (e.c.) [Active]; hb 13:21 Baclofen Oral [Active]; tl4 - PMHx: 13:01 Arrhythmia- possibly afib; testicular CA; hb - PSHx: 13:03 Back; hb - Immunization history:: Adult Immunizations up to date. - Social history:: Smoking status: Patient denies any tobacco usage or history of. - Family history:: not pertinent. - Hospitalizations: : No recent hospitalization is reported. ROS: 13:11 Constitutional: Negative for fever, chills, and weight loss, Eyes: Negative for injury, rn pain, redness, and discharge, Cardiovascular: Negative for chest pain, palpitations, and edema, Respiratory: Negative for shortness of breath, cough, wheezing, and pleuritic chest pain, Abdomen/GI: Negative for abdominal pain, nausea, vomiting, diarrhea, and constipation, Back: Positive for lower back pain MS/Extremity: Negative for injury and deformity, Skin: Negative for injury, rash, and discoloration, Neuro: Negative for headache, weakness, numbness, tingling, and seizure, Exam: 13:11 Constitutional: This is a well developed, well nourished patient who is awake, alert, rn and in no acute distress. Cardiovascular: Regular rate and rhythm. No pulse deficits. Respiratory: No increased work of breathing, no retractions or nasal flaring. Abdomen/GI: Soft, nontender, no distention Back: No spinal tenderness. Skin: Warm, dry MS/ Extremity: Pulses equal, no cyanosis. Neuro: Awake and alert, GCS 15 Vital Signs: 13:00 BP 133 / 86; Pulse 77; Resp 16; Temp 97.8; Pulse Ox 99% on R/A; Weight 63.5 kg; Height hb 5 ft. 7 in. ; Pain 3/10; 13:15 BP 138 / 83; Pulse 74; Resp 18; Pulse Ox 100% ; Pain 8/10; tl4 13:00 Body Mass Index 21.93 (63.50 kg, 170.18 cm) hb 13:00 Pain Scale: Adult hb 13:15 Pain Scale: Adult tl4 Muldrow Coma Score: 13:15 Eye Response: spontaneous(4). Motor Response: obeys commands(6). Verbal Response: tl4 oriented(5). Total: 15. MDM: 12:53 Patient medically screened. rn 14:09 Differential diagnosis: strain, fracture, sciatica, contusion, Herniated disc. Data rn reviewed: vital signs, nurses notes, radiologic studies, CT scan, and as a result, I will discharge patient. Counseling: I had a detailed discussion with the patient and/or guardian regarding the historical points, exam findings, and any diagnostic results supporting the discharge/admit diagnosis, radiology results, the need for outpatient follow up, to return to the emergency department if symptoms worsen or persist or if there are any questions or concerns that arise at home. Special discussion: I discussed with the patient/guardian in detail that at this point there is no indication for admission to the hospital. It is understood, however, that if the symptoms persist or worsen the patient needs to return immediately for re-evaluation. Based on the history and exam findings, there is no indication for further emergent testing or inpatient evaluation. I discussed with the patient/guardian the need to see the back specialist for further evaluation of the symptoms. ED course: CT shows multilevel disc problems and neuroforaminal stenosis. No other acute findings. Consistent with patient's report of chronic and acute back pain. Will DC home with gabapentin and steroids. Patient already on muscle relaxer.. 04/01 13:09 Order name: CT Lumbar Spine Wo Con; Complete Time: 14:02 rn 04/01 13:09 Order name: CT Thoracic Spine Wo Cont; Complete Time: 14:02 rn Administered Medications: 14:49 Drug: Ketorolac IM 15 mg IM once Route: IM; Site: left ventrogluteal; tl4 14:59 Follow up: Response: No adverse reaction tl4 14:49 Drug: Gabapentin PO 300 mg PO once Route: PO; tl4 14:58 Follow up: Response: Medication administered at discharge. tl4 Disposition Summary: 04/01/23 14:10 Discharge Ordered Notes: Location: Home rn Problem: an ongoing problem rn Symptoms: have improved rn Condition: Stable rn Diagnosis - Intervertebral disc disorders with radiculopathy, lumbar region rn Followup: rn - With: Private Physician - When: As needed - Reason: Recheck today's complaints, Re-evaluation by your physician Discharge Instructions: - Discharge Summary Sheet rn - Herniated Disk rn - Lumbosacral Radiculopathy rn - Degenerative Disk Disease rn Forms: - Medication Reconciliation Form rn - Thank You Letter rn - Antibiotic rn cardiac - Prescription Opioid Use rn - Patient Portal Instructions rn - Leadership Thank You Letter rn Prescriptions: - gabapentin 300 mg Oral capsule - take 1 capsule ORAL route every 12 hours As needed; 14 capsule; Refills: 0, rn Product Selection Permitted - Medrol (Chaim) 4 mg Oral Tablets, Dose Pack - take 1 tablet ORAL route as directed - follow package instructions; 1 packet; rn Refills: 0, Product Selection Permitted Signatures: Dispatcher [employer] Mich Mason MD MD rn Baxter, Heather, RN RN hb Logdahl, Toni tl4 Corrections: (The following items were deleted from the chart) 13:03 13:01 PSHx: Baxk (testicular CA); hb hb 13:03 13:01 PSHx: Back (testicular CA); hb hb
[2023-04-01 15:43] VITALS: BP 138/83; TEMP 97.8; O2SAT 100
== END ==
LOC: ER 12:47
DX: M51.16 Intervertebral disc disorders with radiculopathy, lumbar region (principal); Z88.5 Allergy status to narcotic agent; Z91.013 Allergy to seafood; Z91.048 Other nonmedicinal substance allergy status
CPT/HCPCS: 72128; 72131; 96372; 99284

== ENCOUNTER 2024-10-26 08:02 | Emergency (ER) | payer BC ==
--- OUTSIDE RECORDS SUMMARY | 2024-10-26 08:06 | XMS REPORT | Continuity of Care Document ---
Author Name Unknown Address [address] [facility] [address] [place] [address] [facility] [place] Address [address] [facility] 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 Name Role Phone Stacey Bain Attending Clinician Unavailable Yon Eng Attending Clinician Unavailable Shine Christine Attending Clinician UnavailDR HIEU Degroot Attending Clinician Unavailable Inocencia Attending Clinician Unavail able Physician, No Primary or Family Admitting Clinic fish Unavailable DR HIEU OCAMPO Admitting Clinician Unavailable KNOW, DOES_NOT Admitting Clinician Unavailable Inocencia Admitting Clinician Unavail able Payers Payer Name Policy Type Policy Number Effective Date Expirati on Date Source [place] [id number] 2019 00:00:00 Problems Condition Name Condition Details Condition Category Status Onset Date Resolution Date Last Treatment Date Treating Clinician Comments Source Erectile dysfunctio n co-occurre nt and due to arterial insufficie ncy Erectile Dysfunctio n Co-occurre nt and Due to Arterial Insufficie ncy Problem Active 08-07 00:00: 00 [facility] Fatigue Fatigue Problem Active 08-06 00:00: 00 [facility] Hypothyroi dism Hypothyroi dism Problem Active 08-06 00:00: 00 [facility] 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 on Problem Active 08-06 00:00: 00 [facility] Vitamin D deficiency Vitamin D Deficiency Problem Active 08-06 00:00: 00 [facility] Tobacco dependence syndrome Tobacco Dependence Syndrome Problem Active 08-06 00:00: 00 [facility] Mild depression Mild Depression Problem Active 08-06 00:00: 00 [facility] Displaceme nt of lumbar interverte bral disc without myelopathy Displaceme nt of Lumbar Interverte bral Disc without Myelopathy Problem Active 06-06 00:00: 00 [facility] Stenosis of interverte bral foramina Stenosis of Interverte bral Foramina Problem Active 06-06 00:00: 00 [facility] Low back pain Low Back Pain Problem Active 06-06 00:00: 00 [facility] Lumbar radiculopa thy Lumbar Radiculopa thy Problem Active 06-06 00:00: 00 [facility] Degenerati on of cervical interverte bral disc Degenerati on of Cervical Interverte bral Disc Problem Active 2015-03 00:00: 00 [facility] UNK UNK Active 07/27/2015 [facility] Active 07-26 00:00: 00 2015-08-18 07:14:00 Memmeagan Fisher 723.8 - CERVICAL SYNDRO 784.0 - HEADACHE 723.8 - CERVICAL SYNDRO 784.0 - HEADACHE Active 11/09/2014 XAVIER OPID [place] Diagnosis Active 11-09 00:01: 00 2014-11-17 21:35:00 Marquita Fisher Hernia of abdominal cavity (disorder) Hernia of abdominal cavity (disorder) Res[facility]07[facility] 2019-09-07 21:17:26 Marquita Fisher Irregular heart beat (finding) Irregular heart beat (finding) Resolved Problem 09/07/2019 Carli Tolentino [facility] Problem Resolve d 2019-09-07 21:17:26 Marquita Fisher Neck pain (finding) Neck pain (finding) Resolved [facility]07[facility] 2019-09-07 21:17:26 Marquita Fisher Seminoma (morpholog ic abnormalit y) Seminoma (morpholog ic abnormalit y) Resolved Problem 08/21/2015 [facility] Problem Resolve d 2015-08-21 00:31:40 Memmeagan Fisher Cervical radiculopa thy (disorder) Cervical radiculopa thy (disorder) Active Problem 06/01/2023 [facility] [place] Problem Active 2023-06-01 01:47:53 Memoria ana Fisher Malignant tumor of testis (disorder) Malignant tumor of testis (disorder) Active Problem 06/01/2023 [facility] [place] Problem Active 2023-06-01 01:47:53 Memoria ana Fisehr Carpal tunnel syndrome (disorder) Carpal tunnel syndrome (disorder) Active Problem 06/01/2023 [facility] [place] Problem Active 2023-06-01 01:47:53 Memoria ana Fisher Scoliosis of thoracic spine (finding) Scoliosis of thoracic spine (finding) Active Problem 06/01/2023 [facility] [place] Problem Active 2023-06-01 01:47:53 Memoria ana Fisher DIZZINESS AND GIDDINESS DIZZINESS AND GIDDINESS Active [facility] Diagnosis Active 2015-08-18 07:14:00 Marnieoria ana Fisher Back fusion (procedure ) Back fusion (procedure ) Resolved Problem 09/07/2019 L5 to 6 [facility] 2019-09-07 21:17:26 Marquita Fisher Allergies, Adverse Reactions, Alerts Allergy Name Allergy Type Status Severity Reaction(s) Onset Date Inactive Date Treating Clinician Comments Source iodine DA Active [place] RASH, THROAT SWELLING 06-28 00:00: 00 [facility] morphine DA Active [place] RASH, SHAKING 06-28 00:00: 00 [facility] morphine DA Active U UNKNOWN 05-31 00:00: 00 [facility] iodine DA Active U UNKNOWN 04-10 00:00: 00 [facility] Morphine Allergy to substanc e Active 2015-03 00:00: 00 [facility] Iodine Allergy to substanc e Active Moderate to severe Hives 1989-03 00:00: 00 [facility] SHELLFIS H DERIVED Allergy to substanc e Active [facility] Social History Social Habit Start Date Stop Date Quantity Comments Source Social History 2015-08-18 12:14:47 2015-08-18 12:14:[facility] Sm[facility] Status Start Date Stop Date Source Never Smoker [facility] Tobacco smoking status 2022-12-28 20:57:07 [facility] Medications Ordered Medication Name Filled Medication Name Start Date Stop Date Current Medication? Ordering Clinician Indication Dosage Frequency Signature (SIG) Comments Components Source testosteron e 200 mg implant pelletTake 1 pellet by implantatio n route. testosteron e 200 mg implant pelletTake 1 pellet by implantatio n route. 10-09 13:34: 59 No 1pellet (s) testostero ne 200 mg implant pelletTake 1 pellet by implantati on route. [facility] levothyroxi ne 25 mcg tablet 25 micrograms every day by oral route. levothyroxi ne 25 mcg tablet 25 micrograms every day by oral route. 07-02 00:00: 00 No 25micro gram(s) Q1D levothyrox ine 25 mcg tablet 25 micrograms every day by oral route. 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, 64.545, kg, 02/13/23 8:34:00 [employer], Weight Marquita Fisher Cymbalta 60 mg oral delayed release capsule 2022-03 20:48: 00 Yes 1.0, PO, Bedtime, 0 Refill(s) Marquita Fisher prednisone 10 mg tablet TAKE TABLETS 6,5,4,3,2,1 prednisone 10 mg tablet TAKE TABLETS 6,5,4,3,2,1 2015-03 00:00: 00 No prednisone 10 mg tablet TAKE TABLETS 6,5,4,3,2, 1 [facility] fludrocorti sone 0.1 mg oral tablet 08-17 15:10: 00 Yes 0.1 mg = 1 tab, PO, Daily, X 90 day, # 90 tab, 0 Refill(s) Marniemeagan ana Fisher Compression Hose/Anti-E mbolism Stockings Misc/Other 08-17 15:10: 00 Yes 1 ea, MISC, PRN, PRN As directed by physician, # 1 ea, 12 Refill(s) Marniemeagan ana Phillip isoproteren ol 1 mg + sodium chloride 0.9% INJ 250 mL 08-17 12:07: 00 No Notes: (Same as:Isuprel ) Marniemeagan ana Fisher Zoloft 25 mg oral tablet 08-17 12:03: 00 Yes 25 mg = 1 tab, PO, Daily, 0 Refill(s) Marquita Hernandezann aspirin 08-17 12:03: 00 Yes 325 mg, PO, Daily, 0 Refill(s) Marquita Fisher baclofen 10 mg tablet TAKE 1 TABLET BY MOUTH AT BEDTIME baclofen 10 mg tablet TAKE 1 TABLET BY MOUTH AT BEDTIME No baclofen 10 mg tablet TAKE 1 TABLET BY MOUTH AT BEDTIME [facility] blood pressu solution kit blood pressu solution kit No blood pressu solution kit [facility] chlorhexidi ne gluconate 0.12 % mouthwash SWISH AND SPIT 15ML BY MOUTH TWICE DAILY FOR 7 DAYS. DO NOT SWALLOW chlorhexidi ne gluconate 0.12 % mouthwash SWISH AND SPIT 15ML BY MOUTH TWICE DAILY FOR 7 DAYS. DO NOT SWALLOW No chlorhexid ine gluconate 0.12 % mouthwash SWISH AND SPIT 15ML BY MOUTH TWICE DAILY FOR 7 DAYS. DO NOT SWALLOW [facility] duloxetine 60 mg capsule,del ayed release TAKE 1 CAPSULE BY MOUTH EVERY DAY duloxetine 60 mg capsule,del ayed release TAKE 1 CAPSULE BY MOUTH EVERY DAY No duloxetine 60 mg capsule,de layed release TAKE 1 CAPSULE BY MOUTH EVERY DAY [facility] gabapentin 100 mg capsule Take 1 capsule 3 times a day by oral route as directed for 30 days. gabapentin 100 mg capsule Take 1 capsule 3 times a day by oral route as directed for 30 days. No 1capsul e(s) TID gabapentin 100 mg capsule Take 1 capsule 3 times a day by oral route as directed for 30 days. [facility] gabapentin 300 mg capsule TAKE 1 CAPSULE BY MOUTH EVERY 12 HOURS NEEDED gabapentin 300 mg capsule TAKE 1 CAPSULE BY MOUTH EVERY 12 HOURS NEEDED No gabapentin 300 mg capsule TAKE 1 CAPSULE BY MOUTH EVERY 12 HOURS NEEDED [facility] meloxicam 15 mg tablet TAKE 1 TABLET EVERY DAY BY ORAL ROUTE WITH MEAL(S). meloxicam 15 mg tablet TAKE 1 TABLET EVERY DAY BY ORAL ROUTE WITH MEAL(S). No 1 Q1D meloxicam 15 mg tablet TAKE 1 TABLET EVERY DAY BY ORAL ROUTE WITH MEAL(S). [facility] methylpredn isolone 4 mg tablets in a dose pack TAKE 6 TABLETS ON DAY 1 DIRECTED ON PACKAGE AND DECREASE BY 1 TAB EACH DAY FOR A TOTAL OF 6 DAYS methylpredn isolone 4 mg tablets in a dose pack TAKE 6 TABLETS ON DAY 1 DIRECTED ON PACKAGE AND DECREASE BY 1 TAB EACH DAY FOR A TOTAL OF 6 DAYS No methylpred nisolone 4 mg tablets in a dose pack TAKE 6 TABLETS ON DAY 1 DIRECTED ON PACKAGE AND DECREASE BY 1 TAB EACH DAY FOR A TOTAL OF 6 DAYS [facility] duloxetine 60 mg capsule,del ayed release Take 1 capsule every day by oral route for 90 days. duloxetine 60 mg capsule,del ayed release Take 1 capsule every day by oral route for 90 days. No 1capsul e(s) Q1D duloxetine 60 mg capsule,de layed release Take 1 capsule every day by oral route for 90 days. [facility] MARKET RESEARCHER Thyroid 60 mg tablet Take 1 tablet every day by oral route for 90 days. MARKET RESEARCHER Thyroid 60 mg tablet Take 1 tablet every day by oral route for 90 days. No 1 Q1D MARKET RESEARCHER Thyroid 60 mg tablet Take 1 tablet every day by oral route for 90 days. [facility] Vital Signs Vital Name Observation Time Observation Value Comments S ource Height 2023-07-26 00:00:00 67 [in_i] [facility] Body Weight 2023-07-26 00:00:00 138 [lb_av] [facility] BMI (Body Mass Index) 2023-07-26 00:00:00 21.6 kg/m2 [facility] Height 2023-04-12 00:00:00 67 [facility] BMI (Body Mass Index) 2023-04-12 00:00:00 21.6 kg/m2 [facility] Body Weight 2023-04-12 00:00:00 138 [lb_av] [facility] Systolic (mm Hg) 2023-02-13 14:34:00 [facility] Diastolic (mm Hg) 2023-02-13 14:34:00 [facility] Heart Rate 2023-02-13 14:34:00 [facility] Height 2023-02-13 14:34:00 5 [ft_i] [facility] Weight 2023-02-13 14:34:00 [facility] BMI Calculated 2023-02-13 [facility] Systolic (mm Hg) 2022-12-28 20:49:00 [facility] Diastolic (mm Hg) 2022-12-28 20:49:00 [facility] Heart Rate 2022-12-28 20:49:00 [facility] Height 2022-12-28 20:49:00 5 [ft_i] [facility] Weight 2022-12-28 20:49:00 [facility] BMI Calculated 2022-12-28 20:49:00 [facility] Weight 2015-08-18 12:07:00 [facility] BMI Calculated 2015-08-18 12:07:00 [facility] Height 2015-08-18 12:07:00 170.18 cm [facility] Procedures Procedure Date / Time Performed Performing Clinician Source RADEX SPI LUMBOSAC MINIMUM 4 VIEWS 2023-04-12 00:00:00 [facility] MRI, lumbar spine, w/o contrast 2023-04-12 00:00:00 [facility] Testis Excision 2015-08-05 00:00:00 [facility] Cervical Arthrodesis by Posterior Technique 2014-08-05 00:00:00 [facility] Colonoscopy [facility] Operation [facility] Cancer Surgery [facility] Hernia Repair [facility] Other [facility] Encounters Start Date/Time End Date/Time Encounter Type Admission Type Attending Clinicians Care Facility Care Department Encounter ID Source 2024-02-04 08:43:00 Outpatient Stacey Bain [facility] [id number] [facility] 2023-10-05 13:00:00 Inpatient Yon Edmondson [facility] [id number] 50 [facility] [place] [facility] 2023-08-29 14:11:00 Outpatient Stacey Bain [facility] [id number] [facility] 2023-07-24 07:32:00 Outpatient Stacey Bain [facility] [id number] [facility] 2022-05-03 16:17:00 [facility] [id number] [facility] 2022-03-30 07:59:00 Outpatient Stacey Bain [facility] [id number] [facility] 2021-04-06 14:27:34 Outpatient Stacey Bain [facility] [id number] [facility] 2021-04-06 14:26:58 Outpatient Stacey Bain [facility] [id number] [facility] 2021-04-06 14:24:28 Outpatient Stacey Bain [facility] [id number] [facility] 2021-04-06 14:20:07 Outpatient Stacey Bain [facility] [id number] [facility] 2021-04-06 13:59:49 Outpatient Stacey Bain [facility] [id number] [facility] 2021-04-06 13:58:36 Outpatient Stacey Bain [facility] [id number] [facility] 2021-04-06 13:58:15 Outpatient [facility] [id number] [facility] 2021-04-06 13:16:32 Outpatient Stacey B[facility] [id number] [facility] 2021-04-06 12:03:38 Outpatient St[facility]EL[facility] [id number] [facility] 2021-04-06 11:19:55 Outpatient St[facility] [id number] [facility] 2021-04-06 11:19:10 [facility] [id number] [facility] 2017-12-13 14:00:00 [facility] [id number] 2017-11-29 13:00:00 Inpatient Xi OCAMPO [facility] C [id number] [facility] 2024-10-09 00:00:00 2024-10-09 00:00:00 TONYA Razo: [address], [place] [address] , Ph. [facility] - GC_GCBZW_Renetta shelby Beau* [id number] [facility] 2024-08-06 00:00:00 2024-08-06 00:00:00 SATNAM LazaroP: [address], [place] [address] , Ph. [facility] - GC_GCBZW_Renetta shelby Marinette* [id number] [facility] 2023-08-13 00:00:00 2023-08-13 00:00:00 Yon Eng MD: [id number] [place] [address] , Ph. [facility] [place] [facility] - FOG_Telemed icine [id number] [facility] 2023-07-26 00:00:00 2023-07-26 00:00:00 Pepito Valle MD: [id number] [address] , Ph. [phone] [facility] [place] [facility] - FOG_Ofc Neeses [id number] [facility] 2023-06-29 11:39:00 2023-06-29 11:39:00 Outpatient Yon Edmondson [facility] [id number] [address] [place] [address] [facility] 2023-06-29 00:00:00 2023-06-29 00:00:00 Yon Eng MD: [address] [place] [phone] , Ph. [facility] [place] [facility] [place] - FOG_[facility]_OP [id number] [facility] 2023-06-21 00:00:00 2023-06-21 00:00:00 Outpatient FOG_Deven Daugherty [facility] [id number] [facility] 2023-06-16 00:00:00 2023-06-16 00:00:00 Outpatient FOG_Deven Daugherty [facility] [id number] [facility] 2023-06-07 00:00:00 2023-06-07 00:00:00 Luann Wang PA: [address] [place] [phone] , Ph. FOG_Deven Daugherty [facility] [place] [facility] - FOG_Telemed icine [id number] [facility] 2023-04-12 00:00:00 2023-04-12 00:00:00 Pepito Valle MD: [id number] [address] , Ph. [phone] [facility] [place] [facility] - FOG_Ofc Neeses [id number] [facility] Results Test Description Test Time Test Comments Results Resul t Comments Source - XR FLUORO FOR SPINE INJ 2023 18:23:00 [facility] 1965 Sex: M Patient Name: RICKIE VALLEJO Unit No: [id number] EXAMS: CPT CODE: [id number] XR FLUORO FOR SPINE INJ [id number] LUMBAR INTERLAMINAR EPIDURAL STEROID INJECTION PROCEDURE: 1) L2-3 and L4-5 interlaminar epidural steroid injection 2) Fluoroscopic needle guidance REASON FOR PROCEDURE: Lumbar Radiculopathy PHYSICIAN: Yon Eng MD MEDICATIONS INJECTED: 2 mL of Kennalog PF (80 mg) and 6 mL of sterile, preservative-free normal saline LOCAL ANESTHETIC INJECTED: 5 mL of 1% lidocaine ESTIMATED BLOOD LOSS: None COMPLICATIONS: None TECHNIQUE: Time-out was taken to identify the correct patient, procedure and side prior to starting the procedure. With the patient lying in the prone position, the area was prepped and draped in the usual sterile fashion using DuraPrep and a fenestrated drape. The level above was determined using fluoroscopy. A local anesthetic was given using a 27-gauge 1.25- inch needle by raising a skin wheal and going down to the hub. A 3.5-inch 18-gauge Tuohy needle was introduced under intermittent fluoroscopic guidance. The needle was advanced through the ligamentum flavum using the loss of resistance technique. Once the tip of the needle was thought to be in the desired position, the Omnipaque 240 was injected to confirm only epidural spread, and no vascular runoff. The injectate was then injected slowly. The procedure was completed without complications and was tolerated well. The patient was monitored after the procedure. The patient (or responsible libertarian) was given post-procedure and discharge instructions to follow at home. The patient was discharged in stable condition. A follow-up appointment was made. at 1823 Reported and signed by: JESSIKA RIVAS MD CC: Yon Egn MD Technologist: NISREEN MAY (ARRT) Transcribed D/ (1822) [facility] [place] NAME: RICKIE VALLEJO [id number] [facility] PHYS: Yon Schmidt MD [place], [place] [address] : 1965 AGE: 57 SEX: M LOC: C[facility] PHONE #: [phone] EXAM DATE: 06/29/2023 STATUS: [facility] FAX #: [phone] RAD #: D/C DT PAGE 1 Signed Report Patient Name: RICKIE VALLEJO Unit No: [id number] EXAMS: CPT CODE: [id number] XR FLUORO FOR SPINE INJ [id number] (Continued) Orig Print D/T: S: 2023 (1825) [facility] NAME: RICKIE VALLEJO [id number] [facility] PHYS: Yon Schmidt MD [place] [address] : 1965 AGE: 57 SEX: M LOC: [facility] PHONE #: [phone] EXAM DATE: 06/29/2023 STATUS: [facility] FAX #: [phone] RAD #: D/C DT PAGE 2 Signed Report Notes SL: 12SL: 16 Date/Time Note Provider Source 2015-02-23 06:58:09 MRI CERVICAL SPINE WITHOUT CONTRAST CLINICAL INFORMATION: M96.1 Postlaminectomy syndrome, not elsewhere classified. COMPARISON: None. TECHNIQUE: Sagittal T1, T2 and fat suppressed T2 weighted images were followed by axial T1 and T2-weighted views of the cervical spine without iv. contrast. FINDINGS: The vertebrae are normal in shape, signal intensity and alignment. The cervical cord is normal in size and signal intensity. The cerebellar tonsils are normal in position above the level of the foramen magnum. There is no syrinx. Postoperative laminectomy and anterior cervical fusion are present at C5/C6. There is multilevel degenerative disc disease consisting of disc space narrowing, degenerative disc desiccation, and disc bulges causing varying stenosis as below. At C2-C3, no acute disc herniation, significant spinal or foraminal stenosis detected. At C3-C4, mild posterior disc osteophyte complex and left asymmetric disc protrusion with left central annular fissuring are present resulting in mild cord flattening but no edema. Mild left foraminal stenosis is present. Please correlate with neurologic symptoms. At C4-C5, posterior endplate ridging and disc osteophyte complex are present. No significant cord contour abnormality or edema. No significant foraminal stenosis detected. At C5-C6, no acute disc herniation, significant spinal or foraminal stenosis. At C6-C7, no acute disc herniation, significant spinal or foraminal stenosis. At C7-T1, no acute disc herniation, significant spinal or foraminal stenosis. IMPRESSION: 1. Postoperative laminectomy and anterior cervical fusion are present at C5/C6. Mild posterior disc osteophyte complex and left asymmetric disc protrusion are present resulting in mild cord flattening but no edema and mild left foraminal stenosis. Please correlate with neurologic symptoms. 2. No definite acute compression fracture or pathologic subluxation detected. XAVIER De León 2014-11-17 16:50:28 MRI BRAIN WITHOUT CONTRAST INDICATION: Headache and dizziness COMPARISON: None DISCUSSION: The white matter is normal in signal. There is no evidence of acute vascular insults, space occupying lesions, hemorrhage, hydrocephalus, midline shift, or extra-axial collections. No cortical based, suprasellar, craniocervical, or bone marrow abnormalities are seen. IMPRESSION: No intracranial abnormalities are visualized. XAVIER De León
--- NOTE | 2024-10-26 09:02 | RAD REPORT ---
EXAMINATION: UPPER EXTREMITY VENOUS UNILATE CLINICAL INDICATION: Male, 59 years old.Pain;Swelling TECHNIQUE: Multiplanar grayscale and color Doppler images were obtained in a upper extremity venous ultrasound. Spectral analysis of the Doppler waveforms were performed. COMPARISON: No prior exams FINDINGS: The internal jugular vein, subclavian vein, axillary vein, basilic vein, brachial vein, cephalic vein , radial vein, and ulnar vein were evaluated and patent. The brachial vein, cephalic vein, radial vein, and ulnar veins were compressible and patent. IMPRESSION: No evidence of deep venous thrombosis in the left upper extremity.
--- NOTE | 2024-10-26 09:05 | RAD REPORT ---
EXAM: Hand Left 3 View HISTORY: PAIN COMPARISON: None FINDINGS: Bones: No acute fracture identified. Alignment:No significant malalignment. Degenerative changes:None significant. Other: n/a IMPRESSION: No acute osseous abnormality involving the imaged hand.
--- NOTE | 2024-10-26 09:15 | EDPHYS ---
Physician Documentation [facility] Name: Owen Gaitan Age: 59 yrs Sex: Male : 1965 Arrival Date: 10/26/2024 Time: 08:02 Bed 7 Private MD: ED Physician Mich Del Rio HPI: 10/26 08:18 This 59 yrs old Male presents to ER via Ambulatory with complaints of Arm Pain. sb4 08:18 . sb4 08:19 Patient states that he injured his left hand/wrist wearing on a tractor about 2 months sb4 ago. States it initially swelled up but it resolved on its own. However, he states that over the past 2 days, the pain has returned and now it is shooting up his arm. He denies any reinjury. No numbness or tingling. He is concerned about a possible blood clot in his arm. Historical: - Allergies: 08:15 Iodine; iw 08:15 Morphine; iw 08:15 Shellfish Containing Products; iw - PMHx: 08:15 Arrhythmia- possibly afib; testicular CA; Hypothyroidism; iw - PSHx: 08:15 back; iw - Immunization history:: Adult Immunizations not up to date. - Infectious Disease History:: Denies. - Social history:: Smoking status: Patient reports use of chewing tobacco. ROS: 08:19 Constitutional: Negative for fever, chills, and weight loss, sb4 08:19 MS/extremity: Positive for injury or acute deformity, pain, swelling, of the left arm and left hand, 08:19 All other systems are negative, Exam: 08:19 Constitutional: This is a well developed, well nourished patient who is awake, alert, sb4 and in no acute distress. Head/Face: Normocephalic, atraumatic. Eyes: Extra-ocular motions intact. Periorbital areas with no swelling, redness, or edema. ENT: Mucous membranes moist. Respiratory: No increased work of breathing, no retractions or nasal flaring. Skin: Warm, dry with normal turgor. Normal color with no rashes, no lesions, and no evidence of cellulitis. MS/ Extremity: Pulses equal, no cyanosis. Neurovascular intact. Full, normal range of motion. Vital Signs: 08:15 BP 130 / 85; Pulse 82; Resp 16; Temp 97.1; Pulse Ox 98% on R/A; Weight 63.5 kg; Height iw 5 ft. 2 in. ; Pain 4/10; 09:25 BP 138 / 79; Pulse 66; Pulse Ox 99% on R/A; ap3 08:15 Body Mass Index 25.61 (63.50 kg, 157.48 cm) iw 08:15 Pain Scale: Adult iw MDM: 08:08 Medical Screening Exam initiated sb4 08:19 Differential diagnosis: Closed fracture, contusion, tendinitis, DVT, neuropathy. sb4 08:57 Independent interpretation of the following test(s) in the Emergency Department X-Ray: sb4 My interpretation is My interpretation of the left hand x-ray images is no acute fracture or dislocation. 09:13 Data reviewed: vital signs, nurses notes, radiologic studies, and as a result, I will sb4 discharge patient. Counseling: I had a detailed discussion with the patient and/or guardian regarding the historical points, exam findings, and any diagnostic results supporting the discharge/admit diagnosis, radiology results, the need for outpatient follow up, a orthopedic surgeon, to return to the emergency department if symptoms worsen or persist or if there are any questions or concerns that arise at home. 10/26 08:12 Order name: Hand Left 3 View XRAY; Complete Time: 09:11 sb4 10/26 08:12 Order name: Extremity Venous Uni Ltd US sb4 10/26 08:16 Order name: UPPER EXTREMITY VENOUS UNILATE; Complete Time: 09:11 EDMS 10/26 09:13 Order name: Wrist Splint: preformed; Complete Time: 09:22 sb4 Administered Medications: No medications were administered Disposition: 11:10 Co-signature as Attending Physician, Mich Del Rio MD I reviewed the patient's care rn provided by the Advanced Practice Provider and agree with the diagnosis and treatment plan. Disposition Summary: 10/26/24 09:14 Discharge Ordered Notes: Location: Home sb4 Problem: new sb4 Symptoms: have improved sb4 Condition: Stable sb4 Diagnosis - Sprain of other part of left wrist and hand, initial encounter sb4 Followup: sb4 - With: Jorge Holden MD - When: As needed - Reason: Further diagnostic work-up, Recheck today's complaints, Re-evaluation by your physician Discharge Instructions: - Discharge Summary Sheet sb4 - Intermetacarpal Sprain sb4 - Hand Pain sb4 Forms: - Work release form ap3 - Patient Portal Instructions sb4 - Leadership Thank You Letter sb4 Signatures: Dispatcher [employer] Vani Benson RN RN iw Nieto, Roman, MD MD rn Brown, Sophia, PA-C PA-C sb4
--- NOTE | 2024-10-26 09:15 | ER ---
Nurse's Notes [facility] Name: Owen Gaitan Age: 59 yrs Sex: Male : 1965 Arrival Date: 10/26/2024 Time: 08:02 Bed 7 Private MD: Diagnosis: Sprain of other part of left wrist and hand, initial encounter Presentation: 10/26 08:14 Chief complaint: Patient states: injured his left forearm/wrist 2 days ago while iw working on a tractor. Coronavirus screen: At this time, the client does not indicate any symptoms associated with coronavirus-19. Ebola Screen: No symptoms or risks identified at this time. Initial Sepsis Screen: Does the patient meet any 2 criteria? No. Patient's initial sepsis screen is negative. Does the patient have a suspected source of infection? No. Patient's initial sepsis screen is negative. Risk Assessment: Do you want to hurt yourself or someone else? Patient reports no desire to harm self or others. Onset of symptoms was October 24, 2024. 08:14 Method Of Arrival: Ambulatory iw 08:14 Acuity: JAIR 4 iw Historical: - Allergies: 08:15 Iodine; iw 08:15 Morphine; iw 08:15 Shellfish Containing Products; iw - PMHx: 08:15 Arrhythmia- possibly afib; testicular CA; Hypothyroidism; iw - PSHx: 08:15 back; iw - Immunization history:: Adult Immunizations not up to date. - Infectious Disease History:: Denies. - Social history:: Smoking status: Patient reports use of chewing tobacco. Screenin:12 [facility] ED Fall Risk Assessment (Adult) History of falling in the last 3 months, ap3 including since admission No falls in past 3 months (0 pts) Confusion or Disorientation No (0 pts) Intoxicated or Sedated No (0 pts) Impaired Gait No (0 pts) Mobility Assist Device Used No (0 pt) Altered Elimination No (0 pt) Score/Fall Risk Level 0 - 2 = Low Risk Oriented to surroundings, Maintained a safe environment, Educated pt \T\ family on fall prevention, incl call for assistance when getting out of bed, Assessed \T\ reinforced patient's understanding of fall precautions, Hourly rounding (assess needs \T\ fall precautionary measures) done, Used ambulatory aids as needed (educated on \T\ assisted with). Abuse screen: Denies threats or abuse. Nutritional screening: No deficits noted. Tuberculosis screening: No symptoms or risk factors identified. Assessment: 08:11 General: Appears in no apparent distress. Behavior is calm, cooperative, appropriate ap3 for age. Pain: Complains of pain in left hand and left arm Pain began gradually, over the last few months, but has gotten worse the last few days. Pain: Pain currently is 4 out of 10 on a pain scale. at worst was 10 out of 10 on a pain scale. Neuro: Level of Consciousness is awake, alert, obeys commands, Oriented to person, place, time, situation, Appropriate for age. Cardiovascular: Patient's skin is warm and dry. Respiratory: Airway is patent Respiratory effort is even, unlabored, Respiratory pattern is regular, symmetrical. Vital Signs: 08:15 BP 130 / 85; Pulse 82; Resp 16; Temp 97.1; Pulse Ox 98% on R/A; Weight 63.5 kg; Height iw 5 ft. 2 in. ; Pain 4/10; 09:25 BP 138 / 79; Pulse 66; Pulse Ox 99% on R/A; ap3 08:15 Body Mass Index 25.61 (63.50 kg, 157.48 cm) iw 08:15 Pain Scale: Adult iw ED Course: 08:06 Patient arrived in ED. al6 08:07 Niya Tam PA-C is PHCP. sb4 08:07 Mich Del Rio MD is Attending Physician. sb4 08:11 Ella Alvarez, RN is Primary Nurse. ap3 08:12 Pulse ox on. NIBP on. ap3 08:15 Triage completed. iw 08:28 Arm band placed on right wrist. ap3 08:29 Patient has correct armband on for positive identification. Bed in low position. Call ap3 light in reach. Side rails up X 1. Provided Education on: call light education. 08:46 UPPER EXTREMITY VENOUS UNILATE In Process Unspecified. EDMS 08:52 Hand Left 3 View XRAY In Process Unspecified. EDMS 09:13 Jorge Holden MD is Referral Physician. sb4 09:25 No provider procedures requiring assistance completed. Patient did not have IV access ap3 during this emergency room visit. Administered Medications: No medications were administered Medication: 09:25 VIS not applicable for this client. ap3 Outcome: 09:14 Discharge ordered by . lauren 09:25 Discharged to home ambulatory, ap3 09:25 Condition: good :25 Discharge instructions given to patient, Instructed on discharge instructions, follow up and referral plans. Demonstrated understanding of instructions, follow-up care, :25 Patient left the ED. ap3 Signatures: Dispatcher [employer] Vani Benson RN RN iw Ella Alvarez RN RN ap3 Niya Tam, PA-C PA-C Lexie Pettit
[2024-10-26 15:27] VITALS: TEMP 97.1
[2024-10-26 15:29] VITALS: BP 138/79; O2SAT 99
== END 2024-10-26 09:25 | disposition home or self-care (01) ==
LOC: ER 08:02
DX: S63.8X2A Sprain of other part of left wrist and hand, initial encounter (principal)
CPT/HCPCS: 93971; 99283